=== PATIENT | female | born 1940 | race Caucasian/White ===

== ENCOUNTER 2017-04-04 12:58 | Inpatient (IN) | payer MEDICARE, OTHER ==
[~2017-04-04] VITALS: Ht 165.1 cm; Wt 73.5 kg
[2017-04-04] MEDS ORDERED: Sodium Chloride 500ML 500 ML IV ONE (13:30)
[2017-04-04] MEDS ORDERED: Metoprolol 5mg/5ml Inj IVP ONE ×2 (14:00→14:30)
[2017-04-04 14:06] LABS: BASOPHILS % (AUTO) 1.6 % (0.0-2.0); EOSINOPHILS % (AUTO) 1.9 % (0.0-3.0); HEMATOCRIT 41.7 % (37.0-47.0); HEMOGLOBIN 13.5 G/DL (12.0-16.0); LYMPHOCYTES % (AUTO) 30.8 % (20.0-45.0); MEAN CORPUSCULAR VOLUME 93 FL (80-99); MONOCYTES % (AUTO) 6.8 % (1.0-10.0); NEUTROPHILS % (AUTO) 58.9 % (45.0-75.0); PLATELET COUNT 282 K/UL (150-450); RED BLOOD COUNT 4.49 M/UL (4.20-5.40); WHITE BLOOD COUNT 7.4 K/UL (4.8-10.8)
[2017-04-04 14:20] LABS: ANION GAP 12 mmol/L (5-15); BLOOD UREA NITROGEN 17 mg/dL (7-18); CALCIUM 9.3 MG/DL (8.5-10.1); CARBON DIOXIDE 25 MMOL/L (21-32); CHLORIDE 106 MMOL/L (98-107); CREATININE 1.1 MG/DL (0.55-1.30); POTASSIUM 3.5 MMOL/L (3.5-5.1); SODIUM 143 MMOL/L (136-145)
[2017-04-04 14:27] LABS: INR 1.1 (0.9-1.1)
[2017-04-04 14:30] VITALS: BP 107/86
--- NOTE | 2017-04-04 14:31 | Diagnostic Imaging Report ---
Indication: Chest pain Comparison: None A single view chest radiograph was obtained. Findings: Bilateral pleural effusion suspected. There is pulmonary vascular congestion and interstitial edema with cardiomegaly. Bones are osteopenic. IMPRESSION: Interstitial edema/congestive heart failure. Bilateral pleural effusions
[2017-04-04 14:34] LABS: ALANINE AMINOTRANSFERASE 16 U/L (12-78); ALBUMIN 3.8 G/DL (3.4-5.0); ALBUMIN/GLOBULIN RATIO 1.1 (1.0-2.7); ALKALINE PHOSPHATASE 101 U/L (46-116); ASPARTATE AMINO TRANSFERASE 19 U/L (15-37); CKMB 2.8 NG/ML (0.0-3.6); CREATINE KINASE 97 U/L (26-308)
[2017-04-04 15:15] LABS: APPEARANCE,URINE CLEAR; BILIRUBIN, URINE NEGATIVE (NEGATIVE); COLOR,URINE PALE YELLOW; GLUCOSE, URINE (UA) NEGATIVE (NEGATIVE); KETONES,URINE NEGATIVE (NEGATIVE); LEUKOCYTE ESTERASE ,URINE 2+ (NEGATIVE); NITRITE,URINE NEGATIVE (NEGATIVE); PH,URINE 5 (4.5-8.0); PROTEIN,URINE NEGATIVE (NEGATIVE); UROBILINOGEN,URINE NORMAL MG/DL (0.0-1.0)
[2017-04-04] MEDS ORDERED: cefTRIAXone 1 GM in NS 55 ML IV SCH (15:15)
[2017-04-04] MEDS ORDERED: Adenosine 6mg/2ml Inj IVP ONE ×2 (15:15→16:00)
[2017-04-04] MEDS ORDERED: Azithromycin 500 MG in NS 275 ML IV SCH (15:15)
[2017-04-04 15:30] VITALS: BP 100/67
[2017-04-04] MEDS ORDERED: Azithromycin 500mg Inj IV ONE (16:12)
[2017-04-04] MEDS ORDERED: NS 275 ML ONE (16:12)
--- NOTE | 2017-04-04 16:14 | Emergency Room Report ---
History of Present Illness General Chief Complaint: Chest Pain Source: Patient Present Illness HPI 76-year-old female presents ED complaining of palpitations. Started 5 days ago. Denies any prior history. Was seen at PMD office and was referred here for evaluation. Denies chest pain or shortness of breath. Denies fevers or chills. Denies cough. No other aggravating relieving factors. Denies any other associated symptoms Allergies: Coded Allergies: No Known Allergies (Unverified , 04/04/17) Patient History Past Medical History: HTN Past Surgical History: none Pertinent Family History: none Social History: Denies: smoking, alcohol use, drug use Now: No Immunizations: UTD Reviewed Nursing Documentation: PMH: Agreed, PSxH: Agreed Nursing Documentation-PMH Hx Hypertension: Yes Review of Systems All Other Systems: negative except mentioned in HPI Physical Exam Vital Signs Date Time Temp Pulse Resp B/P (MAP) Pulse Ox O2 Delivery O2 Flow Rate FiO2 04/04/17 12:53 97.3 144 18 118/78 99 Room Air Sp02 EP Interpretation: reviewed, normal General Appearance: no apparent distress, alert, GCS 15, non-toxic Head: normocephalic, atraumatic Eyes: bilateral eye normal inspection, bilateral eye PERRL ENT: hearing grossly normal, normal pharynx, no angioedema, normal voice Neck: full range of motion, supple/symm/no masses Respiratory: chest non-tender, lungs clear, normal breath sounds, speaking full sentences Cardiovascular #1: no edema, tachycardia Cardiovascular #2: 2+ carotid (R), 2+ carotid (L), 2+ radial (R), 2+ radial (L) , 2+ dorsalis pedis (R), 2+ dorsalis pedis (L) Gastrointestinal: normal bowel sounds, non tender, soft, non-distended, no guarding, no rebound Rectal: deferred Genitourinary: normal inspection, no CVA tenderness Musculoskeletal: back normal, gait/station normal, normal range of motion, non- tender Neurologic: alert, oriented x3, responsive, motor strength/tone normal, sensory intact, speech normal Psychiatric: judgement/insight normal, memory normal, mood/affect normal, no suicidal/homicidal ideation Reflexes: 3+ bicep (R), 3+ bicep (L), 3+ tricep (R), 3+ tricep (L), 3+ knee (R) , 3+ knee (L) Skin: normal color, no rash, warm/dry, well hydrated Lymphatic: no adenopathy Medical Decision Making Diagnostic Impression: Primary Impression: Atrial flutter Qualified Codes: I48.92 - Unspecified atrial flutter Additional Impression: Palpitations ER Course Hospital Course 76-year-old female presents ED with palpitations Differential diagnoses include: TX/unstable angina, contusion, muscle strain, PTX, rib fracture, pneumonia, Clinical course Patient placed on stretcher. on registered nurse cardiac telemetry which shows A.flutter. After initial history and physical I ordered labs, EKG, chest x-ray, IVFs labs reviewed- no leukocytosis, hemoglobin/hematocrit ok, electrolytes okay, troponins negative EKG - aflutter, no acute ischemic changes interpreted by me Chest x-ray- CHF vs PNA given lopressor x 2. given adenosine, IVFs. improvement in tachycardia noted given abx. Case discussed with Dr. Chavez and he agreed to accept the patient to his service for further care and support I. I feel this is a highly complex case requiring extensive working including EKG/Rhythm strip, Xray/CT/US, Blood/urine lab work, repeat exams while in ED, and administration of strong opiates/narcotics for pain control, admission to hospital or close patient follow up. Diagnosis - aflutter, palpitations admitted to telemetry in serious condition Labs Test 04/04/17 13:45 04/04/17 14:48 04/04/17 15:15 White Blood Count 7.4 K/UL (4.8-10.8) Red Blood Count 4.49 M/UL (4.20-5.40) Hemoglobin 13.5 G/DL (12.0-16.0) Hematocrit 41.7 % (37.0-47.0) Mean Corpuscular Volume 93 FL (80-99) Mean Corpuscular Hemoglobin 30.1 PG (27.0-31.0) Mean Corpuscular Hemoglobin Concent 32.5 G/DL (32.0-36.0) Red Cell Distribution Width 12.0 % (11.6-14.8) Platelet Count 282 K/UL (150-450) Mean Platelet Volume 7.4 FL (6.5-10.1) Neutrophils (%) (Auto) 58.9 % (45.0-75.0) Lymphocytes (%) (Auto) 30.8 % (20.0-45.0) Monocytes (%) (Auto) 6.8 % (1.0-10.0) Eosinophils (%) (Auto) 1.9 % (0.0-3.0) Basophils (%) (Auto) 1.6 % (0.0-2.0) Prothrombin Time 12.0 SEC (9.30-11.50) Prothromb Time International Ratio 1.1 (0.9-1.1) Activated Partial Thromboplast Time 25 SEC (23-33) Sodium Level 143 MMOL/L (136-145) Potassium Level 3.5 MMOL/L (3.5-5.1) Chloride Level 106 MMOL/L (98-107) Carbon Dioxide Level 25 MMOL/L (21-32) Anion Gap 12 mmol/L (5-15) Blood Urea Nitrogen 17 mg/dL (7-18) Creatinine 1.1 MG/DL (0.55-1.30) Estimat Glomerular Filtration Rate mL/min (>60) Glucose Level 110 MG/DL (74-106) Calcium Level 9.3 MG/DL (8.5-10.1) Total Bilirubin 1.0 MG/DL (0.2-1.0) Aspartate Amino Transf (AST/SGOT) 19 U/L (15-37) Alanine Aminotransferase (ALT/SGPT) 16 U/L (12-78) Alkaline Phosphatase 101 U/L (46-116) Total Creatine Kinase 97 U/L (26-308) Creatine Kinase MB 2.8 NG/ML (0.0-3.6) Creatine Kinase MB Relative Index 2.8 Troponin I 0.000 ng/mL (0.000-0.056) Pro-B-Type Natriuretic Peptide 1494 pg/mL (0-125) Total Protein 7.3 G/DL (6.4-8.2) Albumin 3.8 G/DL (3.4-5.0) Globulin 3.5 g/dL Albumin/Globulin Ratio 1.1 (1.0-2.7) Urine Color Pale yellow Urine Appearance Clear Urine pH 5 (4.5-8.0) Urine Specific [place] 1.015 (1.005-1.035) Urine Protein Negative (NEGATIVE) Urine Glucose (UA) Negative (NEGATIVE) Urine Ketones Negative (NEGATIVE) Urine Occult Blood Negative (NEGATIVE) Urine Nitrite Negative (NEGATIVE) Urine Bilirubin Negative (NEGATIVE) Urine Urobilinogen Normal MG/DL (0.0-1.0) Urine Leukocyte Esterase 2+ (NEGATIVE) Urine RBC 0-2 /HPF (0 - 2) Urine WBC 2-4 /HPF (0 - 2) Urine Squamous Epithelial Cells Few /LPF (NONE/OCC) Urine Bacteria Few /HPF (NONE) Lactic Acid Level 1.60 mmol/L (0.66-2.22) EKG Diagnostic Results Rate: tachycardiac Rhythm: other - atria flutter ST Segments: other - twave inversions in lateral leads ASA given to the pt in ED: No Rhythm Strip Diag. Results EP Interpretation: yes Rhythm: NSR, no PVC's, no ectopy Chest X-Ray Diagnostic Results Chest X-Ray Diagnostic Results : Chest X-Ray Ordered: Yes # of Views/Limited/Complete: 1 View Indication: Chest Pain EP Interpretation: Yes Interpretation: no pneumothorax, other - bilateral pleural effusion. ? CHF Impression: Other - CHF vs PNA Electronically Signed by: Electronically signed by Vikas Mcclelland MD Last Vital Signs Date Time Temp Pulse Resp B/P (MAP) Pulse Ox O2 Delivery O2 Flow Rate FiO2 04/04/17 15:26 133 04/04/17 14:35 107/86 04/04/17 14:10 16 04/04/17 12:53 97.3 99 Room Air Status: improved Disposition: ADMITTED INPATIENT Condition: Serious Referrals: NON PHYSICIAN (PCP) VIKAS MCCLELLAND M.D. Apr 04, 2017 16:14
[2017-04-04 16:30] VITALS: BP 123/52
[2017-04-04] MEDS ORDERED: dilTIAZem HCl 25mg/5ml Inj IVP ONE (16:30)
[2017-04-04] MEDS ORDERED: MAGNESIUM OXID400 M1 ORAL (16:43)
[2017-04-04] MEDS ORDERED: ASPIR 8181 MG ORAL (16:43)
[2017-04-04] MEDS ORDERED: SIMVASTATIN20 MG ORAL (16:43)
[2017-04-04] MEDS ORDERED: ZETIA10 MG ORAL (16:43)
[2017-04-04] MEDS ORDERED: COQ1050 MG PO (16:43)
[2017-04-04] MEDS ORDERED: ACIDOPHILUS1 EAC6 PO (16:43)
[2017-04-04] MEDS ORDERED: VITAMIN D310000 UNIT PO (16:43)
[2017-04-04] MEDS ORDERED: NEXIUM40 MG ORAL (16:43)
[2017-04-04] MEDS ORDERED: Albuterol/Ipratropium 3ml neb HHN PRN (16:45)
[2017-04-04] MEDS ORDERED: Morphine Sulfate 2mg/ml Inj IVP PRN (16:45)
[2017-04-04] MEDS ORDERED: Nitroglycerin Subl 0.4mg tab SL PRN (16:45)
[2017-04-04] MEDS ORDERED: Miralax 17gm pkt ORAL PRN (16:45)
[2017-04-04] MEDS ORDERED: Enalaprilat 2.5mg/2ml Inj IV PRN (16:45)
[2017-04-04] MEDS ORDERED: Digoxin 0.5mg/2ml Inj IVP ONE (16:55)
[2017-04-04] MEDS ORDERED: Morphine Sulfate 4mg/ml Inj IVP ONE (17:15)
[2017-04-04] MEDS ORDERED: Midazolam 2mg/2ml Inj ONE (17:26)
[2017-04-04 17:30] VITALS: BP 71/19
[2017-04-04] MEDS ORDERED: Midazolam 2mg/2ml Inj IVP ONE (17:30)
[2017-04-04 18:30] VITALS: BP 89/55
[2017-04-04 19:30] VITALS: BP 99/66
--- NOTE | 2017-04-04 19:52 | History and Physical ---
History of Present Illness General Date patient seen: Apr 04, 2017 Reason for Hospitalization: Chest Pain Present Illness HPI 76-year-old female presented to ED complaining of palpitations for 5 days ago. Denies any prior history. Was seen at PMD office and was referred here for evaluation. . Denies fevers or chills. Denies cough. No other aggravating relieving factors. She was found to be in rapid afib and got shocked with 50J and converted to sinus. She was started on BIPAP b/o dyspnea and transferred to [facility] for further management. Allergies: Coded Allergies: No Known Allergies (Unverified , 04/04/17) Medication History Scheduled Aspirin* (Aspir 81*), 81 MG ORAL DAILY, (Reported) Cholecalciferol (Vitamin D3) (Vitamin D3), 5,000 UNIT PO DAILY, (Reported) Esomeprazole Magnesium (Nexium), 40 MG ORAL DAILY, (Reported) Ezetimibe (Zetia*), Unknown Dose ORAL BEDTIME, (Reported) Magnesium Oxide (Magnesium Oxide), 400 MG ORAL DAILY, (Reported) Simvastatin (Zocor), 20 MG ORAL DAILY, (Reported) Miscellaneous Medications Lactobacillus Acidophilus (Acidophilus), 1 EACH PO, (Reported) Ubidecarenone (Coq10), Unknown Dose PO, (Reported) Patient History Healthcare decision maker Resuscitation status Advanced Directive on File Past Medical/Surgical History Past Medical/Surgical History: (1) CAD (coronary artery disease) Review of Systems Respiratory: Reports: shortness of breath Cardiovascular: Reports: palpitations All Other Systems: negative except mentioned in HPI Physical Exam General Appearance: WD/WN Lines, tubes and drains: peripheral HEENT: normocephalic, atraumatic Neck: non-tender, supple Respiratory/Chest: chest wall non-tender, lungs clear Cardiovascular/Chest: normal peripheral pulses, normal rate Abdomen: normal bowel sounds, non tender Genitourinary/Rectal: normal genital exam Extremities: normal range of motion 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 Last 24 Hour Vital Signs Date Time Temp Pulse Resp B/P (MAP) Pulse Ox O2 Delivery O2 Flow Rate FiO2 04/04/17 19:38 96.7 81 28 99/66 94 Nasal Cannula 4.0 04/04/17 19:30 96.7 81 28 99/66 94 Nasal Cannula 4.0 04/04/17 18:30 96.7 69 21 89/55 99 Non-Rebreather 10.0 04/04/17 17:30 128 36 71/19 95 Non-Rebreather 10.0 04/04/17 16:52 132 114/90 04/04/17 16:30 133 36 123/52 98 Nasal Cannula 2.0 04/04/17 15:30 133 30 100/67 98 Nasal Cannula 2.0 04/04/17 15:26 133 04/04/17 14:35 134 107/86 04/04/17 14:30 135 23 107/86 96 Nasal Cannula 2.0 04/04/17 14:10 72 16 04/04/17 14:04 140 126/80 04/04/17 12:53 97.3 144 18 118/78 99 Room Air Laboratory Tests Test 04/04/17 13:45 04/04/17 14:48 04/04/17 15:15 04/04/17 18:07 White Blood Count 7.4 K/UL (4.8-10.8) Red Blood Count 4.49 M/UL (4.20-5.40) Hemoglobin 13.5 G/DL (12.0-16.0) Hematocrit 41.7 % (37.0-47.0) Mean Corpuscular Volume 93 FL (80-99) Mean Corpuscular Hemoglobin 30.1 PG (27.0-31.0) Mean Corpuscular Hemoglobin Concent 32.5 G/DL (32.0-36.0) Red Cell Distribution Width 12.0 % (11.6-14.8) Platelet Count 282 K/UL (150-450) Mean Platelet Volume 7.4 FL (6.5-10.1) Neutrophils (%) (Auto) 58.9 % (45.0-75.0) Lymphocytes (%) (Auto) 30.8 % (20.0-45.0) Monocytes (%) (Auto) 6.8 % (1.0-10.0) Eosinophils (%) (Auto) 1.9 % (0.0-3.0) Basophils (%) (Auto) 1.6 % (0.0-2.0) Prothrombin Time 12.0 SEC (9.30-11.50) H Prothromb Time International Ratio 1.1 (0.9-1.1) Activated Partial Thromboplast Time 25 SEC (23-33) Sodium Level 143 MMOL/L (136-145) Potassium Level 3.5 MMOL/L (3.5-5.1) Chloride Level 106 MMOL/L (98-107) Carbon Dioxide Level 25 MMOL/L (21-32) Anion Gap 12 mmol/L (5-15) Blood Urea Nitrogen 17 mg/dL (7-18) Creatinine 1.1 MG/DL (0.55-1.30) Estimat Glomerular Filtration Rate mL/min (>60) Glucose Level 110 MG/DL (74-106) H Calcium Level 9.3 MG/DL (8.5-10.1) Total Bilirubin 1.0 MG/DL (0.2-1.0) Aspartate Amino Transf (AST/SGOT) 19 U/L (15-37) Alanine Aminotransferase (ALT/SGPT) 16 U/L (12-78) Alkaline Phosphatase 101 U/L (46-116) Total Creatine Kinase 97 U/L (26-308) Creatine Kinase MB 2.8 NG/ML (0.0-3.6) Creatine Kinase MB Relative Index 2.8 Troponin I 0.000 ng/mL (0.000-0.056) 0.000 ng/mL (0.000-0.056) Pro-B-Type Natriuretic Peptide 1494 pg/mL (0-125) H Total Protein 7.3 G/DL (6.4-8.2) Albumin 3.8 G/DL (3.4-5.0) Globulin 3.5 g/dL Albumin/Globulin Ratio 1.1 (1.0-2.7) Urine Color Pale yellow Urine Appearance Clear Urine pH 5 (4.5-8.0) Urine Specific [place] 1.015 (1.005-1.035) Urine Protein Negative (NEGATIVE) Urine Glucose (UA) Negative (NEGATIVE) Urine Ketones Negative (NEGATIVE) Urine Occult Blood Negative (NEGATIVE) Urine Nitrite Negative (NEGATIVE) Urine Bilirubin Negative (NEGATIVE) Urine Urobilinogen Normal MG/DL (0.0-1.0) Urine Leukocyte Esterase 2+ (NEGATIVE) H Urine RBC 0-2 /HPF (0 - 2) Urine WBC 2-4 /HPF (0 - 2) Urine Squamous Epithelial Cells Few /LPF (NONE/OCC) Urine Bacteria Few /HPF (NONE) Lactic Acid Level 1.60 mmol/L (0.66-2.22) Height (Feet): 5 Height (Inches): 5.00 Weight (Pounds): 130 Medications Current Medications Medications (Trade) Dose Ordered Sig/Tavo Route PRN Reason Start Time Stop Time Status Last Admin Dose Admin Acetaminophen (Tylenol) 650 mg Q4H PRN ORAL FEVER 04/04/17 16:45 05/04/17 16:44 Albuterol/ Ipratropium (Albuterol/ Ipratropium) 3 ml Q4H PRN HHN Shortness of Breath 04/04/17 16:45 04/09/17 16:44 Digoxin (Lanoxin) 0.25 mg DAILY IVP 04/05/17 09:00 05/05/17 08:59 Diltiazem HCl (Cardizem) 10 mg Q1H PRN IV HR > 120 04/04/17 16:45 05/04/17 16:44 Enalaprilat (Vasotec) 2.5 mg Q6H PRN IV sbp more than 160 04/04/17 16:45 05/04/17 16:44 Metoprolol Tartrate (Lopressor) 5 mg Q1H PRN IVP HR > 140 04/04/17 16:45 05/04/17 16:44 Morphine Sulfate (Morphine Sulfate) 2 mg Q4H PRN IVP severe Pain (Pain Scale 7-10) 04/04/17 16:45 04/11/17 16:44 Nitroglycerin (Ntg) 0.4 mg Every 5 Minutes PRN SL Prn Chest Pain 04/04/17 16:45 05/04/17 16:44 Ondansetron HCl (Zofran) 4 mg Q6H PRN IVP Nausea & Vomiting 04/04/17 16:45 05/04/17 16:44 Pantoprazole (Protonix) 40 mg DAILY ORAL 04/05/17 09:00 05/05/17 08:59 Polyethylene Glycol (Miralax) 17 gm DAILYPRN PRN ORAL Constipation 04/04/17 16:45 05/04/17 16:44 Temazepam (Restoril) 15 mg HSPRN PRN ORAL Insomnia 04/04/17 16:45 04/11/17 16:44 Assessment/Plan Problem List: (1) Atrial flutter ICD Codes: I48.92 - Unspecified atrial flutter SNOMED: 7893045 Qualifiers: Qualified Codes: I48.92 - Unspecified atrial flutter (2) Palpitations ICD Codes: R00.2 - Palpitations SNOMED: 06535729 (3) CAD (coronary artery disease) ICD Codes: I25.10 - Atherosclerotic heart disease of [place] coronary artery without angina pectoris SNOMED: 31794106 Assessment/Plan cardizem drip digoxin echo titrate bipa respiratory treatment dvt prophylaxis ELI GO Apr 04, 2017 19:52
--- NOTE | 2017-04-04 20:18 | Cardiology Progress Note ---
Assessment/Plan Assessment/Plan [id number] fiale med rate cotroal s/p cardioversion 50 j chf mr hyperlipdimia may need to maintain on antyiarrytmic therapy as heart rate difficult to control diuretic slowly enzyme echo in am venoud dupelx tfts Objective Last 24 Hour Vital Signs Date Time Temp Pulse Resp B/P (MAP) Pulse Ox O2 Delivery O2 Flow Rate FiO2 04/04/17 19:38 96.7 81 28 99/66 94 Nasal Cannula 4.0 04/04/17 19:30 96.7 81 28 99/66 94 Nasal Cannula 4.0 04/04/17 18:30 96.7 69 21 89/55 99 Non-Rebreather 10.0 04/04/17 17:30 128 36 71/19 95 Non-Rebreather 10.0 04/04/17 16:52 132 114/90 04/04/17 16:30 133 36 123/52 98 Nasal Cannula 2.0 04/04/17 15:30 133 30 100/67 98 Nasal Cannula 2.0 04/04/17 15:26 133 04/04/17 14:35 134 107/86 04/04/17 14:30 135 23 107/86 96 Nasal Cannula 2.0 04/04/17 14:10 72 16 04/04/17 14:04 140 126/80 04/04/17 12:53 97.3 144 18 118/78 99 Room Air Laboratory Tests Test 04/04/17 13:45 04/04/17 14:48 04/04/17 15:15 04/04/17 18:07 White Blood Count 7.4 K/UL (4.8-10.8) Red Blood Count 4.49 M/UL (4.20-5.40) Hemoglobin 13.5 G/DL (12.0-16.0) Hematocrit 41.7 % (37.0-47.0) Mean Corpuscular Volume 93 FL (80-99) Mean Corpuscular Hemoglobin 30.1 PG (27.0-31.0) Mean Corpuscular Hemoglobin Concent 32.5 G/DL (32.0-36.0) Red Cell Distribution Width 12.0 % (11.6-14.8) Platelet Count 282 K/UL (150-450) Mean Platelet Volume 7.4 FL (6.5-10.1) Neutrophils (%) (Auto) 58.9 % (45.0-75.0) Lymphocytes (%) (Auto) 30.8 % (20.0-45.0) Monocytes (%) (Auto) 6.8 % (1.0-10.0) Eosinophils (%) (Auto) 1.9 % (0.0-3.0) Basophils (%) (Auto) 1.6 % (0.0-2.0) Prothrombin Time 12.0 SEC (9.30-11.50) H Prothromb Time International Ratio 1.1 (0.9-1.1) Activated Partial Thromboplast Time 25 SEC (23-33) Sodium Level 143 MMOL/L (136-145) Potassium Level 3.5 MMOL/L (3.5-5.1) Chloride Level 106 MMOL/L (98-107) Carbon Dioxide Level 25 MMOL/L (21-32) Anion Gap 12 mmol/L (5-15) Blood Urea Nitrogen 17 mg/dL (7-18) Creatinine 1.1 MG/DL (0.55-1.30) Estimat Glomerular Filtration Rate mL/min (>60) Glucose Level 110 MG/DL (74-106) H Calcium Level 9.3 MG/DL (8.5-10.1) Total Bilirubin 1.0 MG/DL (0.2-1.0) Aspartate Amino Transf (AST/SGOT) 19 U/L (15-37) Alanine Aminotransferase (ALT/SGPT) 16 U/L (12-78) Alkaline Phosphatase 101 U/L (46-116) Total Creatine Kinase 97 U/L (26-308) Creatine Kinase MB 2.8 NG/ML (0.0-3.6) Creatine Kinase MB Relative Index 2.8 Troponin I 0.000 ng/mL (0.000-0.056) 0.000 ng/mL (0.000-0.056) Pro-B-Type Natriuretic Peptide 1494 pg/mL (0-125) H Total Protein 7.3 G/DL (6.4-8.2) Albumin 3.8 G/DL (3.4-5.0) Globulin 3.5 g/dL Albumin/Globulin Ratio 1.1 (1.0-2.7) Urine Color Pale yellow Urine Appearance Clear Urine pH 5 (4.5-8.0) Urine Specific [place] 1.015 (1.005-1.035) Urine Protein Negative (NEGATIVE) Urine Glucose (UA) Negative (NEGATIVE) Urine Ketones Negative (NEGATIVE) Urine Occult Blood Negative (NEGATIVE) Urine Nitrite Negative (NEGATIVE) Urine Bilirubin Negative (NEGATIVE) Urine Urobilinogen Normal MG/DL (0.0-1.0) Urine Leukocyte Esterase 2+ (NEGATIVE) H Urine RBC 0-2 /HPF (0 - 2) Urine WBC 2-4 /HPF (0 - 2) Urine Squamous Epithelial Cells Few /LPF (NONE/OCC) Urine Bacteria Few /HPF (NONE) Lactic Acid Level 1.60 mmol/L (0.66-2.22) YI GIBSON Apr 04, 2017 20:18
--- NOTE | 2017-04-04 21:32 | Emergency Room Report ---
History of Present Illness General Chief Complaint: Chest Pain Source: Patient Present Illness Allergies: Coded Allergies: No Known Allergies (Unverified , 04/04/17) Patient History Now: No Nursing Documentation-PMH Hx Hypertension: Yes Physical Exam Vital Signs Date Time Temp Pulse Resp B/P (MAP) Pulse Ox O2 Delivery O2 Flow Rate FiO2 04/04/17 12:53 97.3 144 18 118/78 99 Room Air 04/04/17 14:30 2.0 Procedures Critical Care Time Critical Care Time i. I feel this is a highly complex case requiring extensive working including EKG/Rhythm strip, Xray/CT/US, Blood/urine lab work, repeat exams while in ED, and administration of strong opiates/narcotics for pain control, admission to hospital or close patient follow up. Total time: 30 min bedside evaluation and treatment excludes procedures (EKG). Reason for critical care: refractory atrial flutter, diaphroetic, hypotension Possible complications: hypotension, hypertension, UT, shock, arrhythmias, metabolic acidosis, end organ damage, respiratory failure. Interventions: Labs, IV fluids, EKG, chest x-ray. Lopressor x2. Cardizem. Adenosine. versed with cardioversion Course: Patient presenting with palpitations x5 days. EKG shows a flutter. New -onset. Given Lopressor x2 without improvement. Given IV fluids. Given Cardizem without improvement. Adenosine had no effect. Patient becoming diaphoretic and hypotensive. Patient given Versed and cardioverted with 50 J. Responded to cardioversion. Blood pressure improving with IV fluids Consultations: nursing staff, EMS, family Performed by: Dr Mcclelland Tolerated well condition = serious j. because of unstable vital signs this patient had a condition that could potentially threaten life or limb. I feel this is a critical patient who required my full attention while patient was considered critical. Total Critical Care Time excluding procedures was greater than 35 minutes Cardioversion Cardioversion: Consent: Emergent Indication: AFIB Type: Synchonis Response: Sinus Attempts: One Patient Tolerated: Well Medical Decision Making Diagnostic Impression: Primary Impression: Atrial flutter Qualified Codes: I48.92 - Unspecified atrial flutter Additional Impression: Palpitations ER Course Patient became again tachycardic and hypotensive. Diaphoretic. Not responding to medications. Patient given Versed and cardioverted with 50 J. Responded to cardioversion. initially lethargic but became more awake. Hypotensive but responded to IV fluids. Discussed case with cardiology Dr. Cardenas Last Vital Signs Date Time Temp Pulse Resp B/P (MAP) Pulse Ox O2 Delivery O2 Flow Rate FiO2 04/04/17 19:38 96.7 81 28 99/66 94 Nasal Cannula 4.0 Status: improved Disposition: ADMITTED INPATIENT Condition: Serious Referrals: NON PHYSICIAN (PCP) NIURKA MCCLELLAND M.D. Apr 04, 2017 21:32
[2017-04-04] MEDS: Amiodarone 200mg tab ORAL SCH (21:46)
[2017-04-05] VITALS: BP 131/75
[2017-04-05 04:00] VITALS: BP 126/80
--- NOTE | 2017-04-05 05:32 | Consultation ---
DATE OF CONSULTATION: 04/04/2017 NOTE: POOR AUDIO CARDIOLOGY CONSULTATION CONSULTING PHYSICIAN: Param Cardenas M.D. REFERRING PHYSICIAN: Gabby Chavez M.D. REASON FOR REFERRAL: Atrial flutter. HISTORY OF PRESENT ILLNESS: This is an elderly female, who presented to the hospital because of shortness of breath and palpitations. Palpitations have been ongoing for the past five days, worse in the evening and when she is sleeping, but she does had persistent regular palpitations apparently. She really had pain, pressure, tightness, or heaviness in her chest at all. No dizziness or lightheadedness. No PND. No orthopnea. She finally presented to her doctor's office, . Because of her heart rate, she was referred to the emergency room. She was admitted to the hospital through the emergency room with tachycardia with heart rates in the 140s. She received therapy with beta-blockers intravenously and subsequently because of poor response, I was notified after an attempt at the patient getting some diltiazem without any effect. The decision was made that probably it better suited for the patient to be cardioverted and the patient did receive some Versed and was cardioverted with 50 joules by the emergency room physician and is now converted to sinus rhythm effect. She says when she came into the hospital, she was feeling better throughout the day and subsequently she worsened in the emergency room. After the cardioversion, she is feeling , but she still feels short of breath. There is no chest pain. There is no PND or orthopnea. PAST MEDICAL HISTORY: Positive for high cholesterol. She is taking medication for it. No history of heart attack. No cancer. No stroke. No hepatitis or tuberculosis. No asthma or emphysema and she has been told she had small ulcers. No kidney problems, liver problems, thyroid problems, anemia, arthritis, or any other medical problems. She has been seen by color worker for some mitral valve problems previously. Every six months she apparently sees . ALLERGIES: She is not allergic to any medications. SOCIAL HISTORY: She does not smoke. Does not drink. Does not use drugs. She worked as an electrical cad technician. REVIEW OF SYSTEMS: GASTROINTESTINAL: She denies any nausea, vomiting, diarrhea, or constipation. GENITOURINARY: Denies. PULMONARY: Positive for coughing for the past three or four weeks. No significant sputum production at this time, although apparently she did before. CONSTITUTIONAL: She had previously some illness, three or four weeks ago she had some fevers at that time, but not now. NEUROLOGIC: Negative. CARDIAC: As mentioned above. PHYSICAL EXAMINATION: GENERAL: Shows to be elderly female, who appears somewhat tachypneic. NECK: Supple. No jugular venous distention. LUNGS: There are some crackles on the bases. CARDIAC: Regular rhythm. No heaves, thrills, gallops, or rubs are noted. ABDOMEN: Abdomen is soft. Obese. Positive bowel sounds. EXTREMITIES: There is no edema. No clubbing or cyanosis. NEUROLOGICAL: She is communicative and responsive. Moves all four extremities. LABORATORY AND DIAGNOSTIC DATA: White count of 7.4, hemoglobin 13.5, and platelet count of 282. Sodium was 143, potassium 3.5, chloride 106, bicarbonate 25, BUN 17, creatinine 1.1, and a glucose of 110. Two sets of cardiac enzymes are completely negative so far between initial presentation of 1345 hours and 1807 hours. ProBNP is 1494 and an albumin of 3.8. Coagulations, INR is 1.1 and PTT 25. Urinalysis is fairly unremarkable. She did have some x-rays of the chest in the emergency room and showed interstitial edema, congestive heart failure, and bilateral pleural effusions changes noted. Electrocardiogram initially showed atrial flutter with a heart rate in the with leftward axis. No significant ST-T wave abnormalities being noted. ASSESSMENT AND PLAN: 1. Atrial flutter rate controlled with beta-blockers and Cardizem. 2. Congestive heart failure. 3. Mitral regurgitation per history. This patient was seen in cardiac consultation. The patient, as mentioned after discussion with the emergency room, had a successful cardioversion to sinus rhythm with 50 joules and she seems somewhat short of breath, although she feels, but she is getting better when compared to throughout the course of the day. She will receive intravenous diuretics here. Her blood pressure had been a bit on the low side earlier, but may be recovering. She will use oxygen and she will have serial enzymes, EKGs will be checked, and a venous duplex study will be ordered for tomorrow morning. Once her blood pressure recovers, the patient will receive intravenous diuretics. An echocardiogram will be ordered for evaluation of left ventricular systolic function and mitral regurgitation. She does not have any problem with hypertension previously. Therefore, I suspect blood pressures in the 99 to 120s may not be that far-fetched from normal for her. Cortisol level be checked in the morning. Param Cardenas M.D. DR: JESUS JOB#: [id number] CC:
[2017-04-05 05:33] LABS: BASOPHILS % (AUTO) 1.1 % (0.0-2.0); EOSINOPHILS % (AUTO) 0.1 % (0.0-3.0); HEMATOCRIT 35.6 % (37.0-47.0); HEMOGLOBIN 12.3 G/DL (12.0-16.0); LYMPHOCYTES % (AUTO) 18.1 % (20.0-45.0); MEAN CORPUSCULAR VOLUME 93 FL (80-99); MONOCYTES % (AUTO) 5.5 % (1.0-10.0); NEUTROPHILS % (AUTO) 75.2 % (45.0-75.0); PLATELET COUNT 253 K/UL (150-450); RED BLOOD COUNT 3.82 M/UL (4.20-5.40); RED CELL DISTRIBUTION WIDTH 12.1 % (11.6-14.8); WHITE BLOOD COUNT 8.8 K/UL (4.8-10.8)
[2017-04-05 06:00] LABS: INR 1.2 (0.9-1.1)
[2017-04-05 06:19] LABS: CHOLESTEROL 100 MG/DL (< 200); HDL CHOLESTEROL 55 MG/DL (40-60); TRIGLYCERIDES 37 MG/DL (30-150)
[2017-04-05 08:00] VITALS: BP 137/74
[2017-04-05] MEDS: Digoxin 0.5mg/2ml Inj IVP SCH (09:44)
[2017-04-05] MEDS: Amiodarone 200mg tab ORAL SCH ×2 (09:45→21:40)
--- NOTE | 2017-04-05 11:56 | Pulmonology Progress Note ---
Assessment/Plan Problems: (1) Acute respiratory failure (2) Atrial flutter (3) Palpitations (4) CAD (coronary artery disease) Assessment/Plan titrate bipa diuretics check cxr bnp in am titrate fio2 watch intake and output Subjective ROS Limited/Unobtainable: No Constitutional: Reports: no symptoms HEENT: Repors: no symptoms Respiratory: Reports: no symptoms Allergies: Coded Allergies: No Known Allergies (Unverified , 04/04/17) Objective Last 24 Hour Vital Signs Date Time Temp Pulse Resp B/P (MAP) Pulse Ox O2 Delivery O2 Flow Rate FiO2 04/05/17 11:16 107 35 100 Facial 50 04/05/17 09:44 101 04/05/17 08:50 101 26 100 Facial 50 04/05/17 08:00 97.9 106 22 137/74 100 Bi-pap 50 04/05/17 07:54 105 04/05/17 06:45 96 28 Bi-pap 50 04/05/17 06:43 98 27 100 Facial 50 04/05/17 05:19 96 20 99 Facial 50 04/05/17 04:00 97.7 94 24 126/80 97 Bi-pap 50 04/05/17 04:00 50 04/05/17 04:00 91 04/05/17 03:27 91 25 99 Facial 50 04/05/17 00:57 89 24 90 Facial 50 04/05/17 00:00 50 04/05/17 00:00 97.4 95 32 131/75 100 Bi-pap 50 04/05/17 00:00 82 04/04/17 22:38 92 27 97 Facial 50 04/04/17 21:44 89 26 94 Simple Mask 6.0 45 04/04/17 21:44 45 04/04/17 21:43 89 26 Simple Mask 6.0 45 04/04/17 19:38 96.7 81 28 99/66 94 Nasal Cannula 4.0 04/04/17 19:30 96.7 81 28 99/66 94 Nasal Cannula 4.0 04/04/17 18:30 96.7 69 21 89/55 99 Non-Rebreather 10.0 04/04/17 17:30 128 36 71/19 95 Non-Rebreather 10.0 04/04/17 16:52 132 114/90 1/11/18 16:30 133 36 123/52 98 Nasal Cannula 2.0 04/04/17 15:30 133 30 100/67 98 Nasal Cannula 2.0 04/04/17 15:26 133 04/04/17 14:35 134 107/86 04/04/17 14:30 135 23 107/86 96 Nasal Cannula 2.0 04/04/17 14:10 72 16 04/04/17 14:04 140 126/80 04/04/17 12:53 97.3 144 18 118/78 99 Room Air Intake and Output 04/04/17 04/05/17 19:00 07:00 Intake Total 0 ml Balance 0 ml Intake Oral 0 ml # Voids 3 Objective still on bipap General Appearance: WD/WN HEENT: normocephalic, atraumatic Respiratory/Chest: chest wall non-tender, lungs clear Cardiovascular: normal peripheral pulses, regular rhythm Abdomen: normal bowel sounds, soft, non tender Genitourinary: normal external genitalia Extremities: no clubbing Skin: no lesions Laboratory Tests 04/04/17 13:45: White Blood Count 7.4, Red Blood Count 4.49, Hemoglobin 13.5, Hematocrit 41.7, Mean Corpuscular Volume 93, Mean Corpuscular Hemoglobin 30.1, Mean Corpuscular Hemoglobin Concent 32.5, Red Cell Distribution Width 12.0, Platelet Count 282, Mean Platelet Volume 7.4, Neutrophils (%) (Auto) 58.9, Lymphocytes (%) (Auto) 30.8, Monocytes (%) (Auto) 6.8, Eosinophils (%) (Auto) 1.9, Basophils (%) (Auto ) 1.6, Prothrombin Time 12.0H, Prothromb Time International Ratio 1.1, Activated Partial Thromboplast Time 25, Sodium Level 143, Potassium Level 3.5, Chloride Level 106, Carbon Dioxide Level 25, Anion Gap 12, Blood Urea Nitrogen 17, Creatinine 1.1, Estimat Glomerular Filtration Rate , Glucose Level 110H, Calcium Level 9.3, Total Bilirubin 1.0, Aspartate Amino Transf (AST/SGOT) 19, Alanine Aminotransferase (ALT/SGPT) 16, Alkaline Phosphatase 101, Total Creatine Kinase 97, Creatine Kinase MB 2.8, Creatine Kinase MB Relative Index 2.8, Troponin I 0.000, Pro-B-Type Natriuretic Peptide 1494H, Total Protein 7.3, Albumin 3.8, Globulin 3.5, Albumin/Globulin Ratio 1.1 04/04/17 14:48: Urine Color Pale yellow, Urine Appearance Clear, Urine pH 5, Urine Specific Boyle 1.015, Urine Protein Negative, Urine Glucose (UA) Negative, Urine Ketones Negative, Urine Occult Blood Negative, Urine Nitrite Negative, Urine Bilirubin Negative, Urine Urobilinogen Normal, Urine Leukocyte Esterase 2+H, Urine RBC 0-2, Urine WBC 2-4, Urine Squamous Epithelial Cells Few, Urine Bacteria Few 04/04/17 15:15: Lactic Acid Level 1.60 04/04/17 18:07: Troponin I 0.000 04/05/17 03:00: White Blood Count 8.8, Red Blood Count 3.82L, Hemoglobin 12.3, Hematocrit 35.6L , Mean Corpuscular Volume 93, Mean Corpuscular Hemoglobin 32.2H, Mean Corpuscular Hemoglobin Concent 34.6, Red Cell Distribution Width 12.1, Platelet Count 253, Mean Platelet Volume 6.9, Neutrophils (%) (Auto) 75.2H, Lymphocytes ( %) (Auto) 18.1L, Monocytes (%) (Auto) 5.5, Eosinophils (%) (Auto) 0.1, Basophils (%) (Auto) 1.1, Prothrombin Time 12.6H, Prothromb Time International Ratio 1.2H, Activated Partial Thromboplast Time 26, Troponin I 0.000, C- Reactive Protein, Quantitative 0.6, Triglycerides Level 37, Cholesterol Level 100, LDL Cholesterol 42, HDL Cholesterol 55, Cholesterol/HDL Ratio 1.8L, Thyroid Stimulating Hormone (TSH) 0.431 Current Medications Medications (Trade) Dose Ordered Sig/Tavo Route PRN Reason Start Time Stop Time Status Last Admin Dose Admin Acetaminophen (Tylenol) 650 mg Q4H PRN ORAL FEVER 04/04/17 16:45 05/04/17 16:44 Albuterol/ Ipratropium (Albuterol/ Ipratropium) 3 ml Q4H PRN HHN Shortness of Breath 04/04/17 16:45 04/09/17 16:44 04/04/17 21:42 Amiodarone HCl (Cordarone) 200 mg EVERY 12 HOURS ORAL 04/04/17 21:00 05/04/17 20:59 04/05/17 09:45 Digoxin (Lanoxin) 0.25 mg DAILY IVP 04/05/17 09:00 05/05/17 08:59 04/05/17 09:44 Diltiazem HCl (Cardizem) 10 mg Q1H PRN IV HR > 120 04/04/17 16:45 05/04/17 16:44 Furosemide 100 mg/ Dextrose 110 ml @ 11 mls/hr Q10H IV 04/05/17 11:45 05/05/17 11:44 UNV Metoprolol Tartrate (Lopressor) 5 mg Q1H PRN IVP HR > 140 04/04/17 16:45 05/04/17 16:44 Nitroglycerin (Ntg) 0.4 mg Every 5 Minutes PRN SL Prn Chest Pain 04/04/17 16:45 05/04/17 16:44 Ondansetron HCl (Zofran) 4 mg Q6H PRN IVP Nausea & Vomiting 04/04/17 16:45 05/04/17 16:44 Pantoprazole (Protonix) 40 mg DAILY ORAL 04/05/17 09:00 05/05/17 08:59 04/05/17 09:45 Polyethylene Glycol (Miralax) 17 gm DAILYPRN PRN ORAL Constipation 04/04/17 16:45 05/04/17 16:44 Temazepam (Restoril) 15 mg HSPRN PRN ORAL Insomnia 04/04/17 16:45 04/11/17 16:44 ELI GO Apr 05, 2017 11:56
[2017-04-05 12:00] VITALS: BP 133/78
--- NOTE | 2017-04-05 12:57 | Cardiology Report ---
APPROVED REPORT EXAM: Two-dimensional and M-mode echocardiogram with Doppler and color Doppler. INDICATION LV FUNCTION M-Mode DIMENSIONS IVSd1.3 (0.7-1.1cm)Left Atrium (MM)4.1 (1.6-4.0cm) LVDd5.4 (3.5-5.6cm)Aortic Root2.6 (2.0-3.7cm) PWd1.3 (0.7-1.1cm)Aortic Cusp Exc.1.3 (1.5-2.0cm) IVSs1.1 cm LVDs3.5 (2.5-4.0cm) PWs1.4 cm Technically difficult study due to poor acoustical windows and patient breathing. Normal left ventricular chamber size, systolic function and wall motion. Left ventricular ejection fraction estimated to be 60-65 %. Mild left ventricular hypertrophy by 2-D. Pleural effusion. Mild Left atrial enlargement. Right cardiac chamber sizes are within normal limits. Focal aortic valve sclerosis with adequate cusp excursion. Heavy Thickened mitral valve leaflets with normal excursion. Heavy Mitral annulus and aortic root calcification. Pulmonic valve not well visualized. Normal tricuspid valve structure. IVC dilated at 2.6 cm without physiologic collapse suggestive of increased RA pressure. A color flow and spectral Doppler study was performed and revealed: No aortic regurgitation. moderate mitral regurgitation. Peak aortic valve gradient of 16 mm Hg and a mean of 6 mmHg. Aortic valve area 2.5 cm2 calculated by continuity equation. Mild aortic stenosis. Peak mitral valve gradient of 30 mm Hg and a mean of 14 mmHg. Moderate mitral stenosis. Moderate mitral regurgitation. Mitral inflow indicates restrictive pattern, implying severely elevated left atrial pressure (Grade III ). Mild tricuspid regurgitation. Tricuspid systolic velocities suggests peak right ventricular systolic pressure of 46 mmHg,consistent with moderate pulmonary hypertension. Trace Pulmonic regurgitation present.
--- NOTE | 2017-04-05 15:48 | Cardiology Progress Note ---
Assessment/Plan Assessment/Plan 1. Atrial flutter failed rate controlled with beta-blockers and Cardizem s/p cardioverison 2. Congestive heart failure. 3. Mitral stenosis likely sig 4. Mitral regurgitation 5. 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 has Mitral stenosis the gradient may be higher than recorded here she may need valvuloplasty eventually at [facility] for now diuresis nwo that bp has recovered post sedation for cardioversion yest is celeste laisx drip now i have her on amiod for now as her heart rate was difficult to control and required cardioversion amiod 200 mg bid for 2 wedeks then 200 mg dialy tele no further afib flutter noted is on bipap now Subjective Cardiovascular: Denies: chest pain Respiratory: Reports: shortness of breath Gastrointestinal/Abdominal: Denies: abdominal pain Genitourinary: Denies: burning Objective Last 24 Hour Vital Signs Date Time Temp Pulse Resp B/P (MAP) Pulse Ox O2 Delivery O2 Flow Rate FiO2 04/05/17 14:48 101 20 98 Facial 50 04/05/17 13:23 101 22 97 Facial 50 04/05/17 12:00 50 04/05/17 12:00 97.0 99 22 133/78 99 Bi-pap 50 04/05/17 11:47 104 04/05/17 11:16 107 35 100 Facial 50 04/05/17 09:44 101 04/05/17 08:50 101 26 100 Facial 50 04/05/17 08:00 50 04/05/17 08:00 97.9 106 22 137/74 100 Bi-pap 50 04/05/17 07:54 105 04/05/17 06:45 96 28 Bi-pap 50 04/05/17 06:43 98 27 100 Facial 50 04/05/17 05:19 96 20 99 Facial 50 04/05/17 04:00 97.7 94 24 126/80 97 Bi-pap 50 04/05/17 04:00 50 04/05/17 04:00 91 04/05/17 03:27 91 25 99 Facial 50 04/05/17 00:57 89 24 90 Facial 50 04/05/17 00:00 50 04/05/17 00:00 97.4 95 32 131/75 100 Bi-pap 50 04/05/17 00:00 82 04/04/17 22:38 92 27 97 Facial 50 04/04/17 21:44 89 26 94 Simple Mask 6.0 45 04/04/17 21:44 45 04/04/17 21:43 89 26 Simple Mask 6.0 45 04/04/17 19:38 96.7 81 28 99/66 94 Nasal Cannula 4.0 04/04/17 19:30 96.7 81 28 99/66 94 Nasal Cannula 4.0 04/04/17 18:30 96.7 69 21 89/55 99 Non-Rebreather 10.0 04/04/17 17:30 128 36 71/19 95 Non-Rebreather 10.0 04/04/17 16:52 132 114/90 04/04/17 16:30 133 36 123/52 98 Nasal Cannula 2.0 General Appearance: alert Neck: supple Cardiovascular: normal rate, regular rhythm Respiratory/Chest: decreased breath sounds Abdomen: normal bowel sounds, non tender, soft Extremities: no swelling Intake and Output 04/04/17 04/05/17 19:00 07:00 Intake Total 0 ml Balance 0 ml Intake Oral 0 ml # Voids 3 Laboratory Tests Test 04/04/17 18:07 04/05/17 03:00 Troponin I 0.000 ng/mL (0.000-0.056) 0.000 ng/mL (0.000-0.056) White Blood Count 8.8 K/UL (4.8-10.8) Red Blood Count 3.82 M/UL (4.20-5.40) L Hemoglobin 12.3 G/DL (12.0-16.0) Hematocrit 35.6 % (37.0-47.0) L Mean Corpuscular Volume 93 FL (80-99) Mean Corpuscular Hemoglobin 32.2 PG (27.0-31.0) H Mean Corpuscular Hemoglobin Concent 34.6 G/DL (32.0-36.0) Red Cell Distribution Width 12.1 % (11.6-14.8) Platelet Count 253 K/UL (150-450) Mean Platelet Volume 6.9 FL (6.5-10.1) Neutrophils (%) (Auto) 75.2 % (45.0-75.0) H Lymphocytes (%) (Auto) 18.1 % (20.0-45.0) L Monocytes (%) (Auto) 5.5 % (1.0-10.0) Eosinophils (%) (Auto) 0.1 % (0.0-3.0) Basophils (%) (Auto) 1.1 % (0.0-2.0) Prothrombin Time 12.6 SEC (9.30-11.50) H Prothromb Time International Ratio 1.2 (0.9-1.1) H Activated Partial Thromboplast Time 26 SEC (23-33) C-Reactive Protein, Quantitative 0.6 mg/dL (0.00-0.90) Triglycerides Level 37 MG/DL (30-150) Cholesterol Level 100 MG/DL (< 200) LDL Cholesterol 42 mg/dL (<100) HDL Cholesterol 55 MG/DL (40-60) Cholesterol/HDL Ratio 1.8 (3.3-4.4) L Thyroid Stimulating Hormone (TSH) 0.431 uiU/mL (0.358-3.740) YI GIBSON Apr 05, 2017 15:48
[2017-04-05 16:00] VITALS: BP 125/70
[2017-04-05 20:00] VITALS: BP 116/66
[2017-04-06] VITALS (7 sets, daily range): BP systolic 95–147; BP diastolic 53–92
[2017-04-06] MEDS: Metoprolol 5mg/5ml Inj IVP PRN ×2 (02:59→07:33)
[2017-04-06] MEDS: dilTIAZem HCl 25mg/5ml Inj IV PRN ×2 (04:40→06:14)
[2017-04-06 04:48] LABS: BASOPHILS % (AUTO) 1.2 % (0.0-2.0); EOSINOPHILS % (AUTO) 1.6 % (0.0-3.0); HEMATOCRIT 37.4 % (37.0-47.0); HEMOGLOBIN 12.8 G/DL (12.0-16.0); LYMPHOCYTES % (AUTO) 22.3 % (20.0-45.0); MEAN CORPUSCULAR VOLUME 93 FL (80-99); MONOCYTES % (AUTO) 8.8 % (1.0-10.0); PLATELET COUNT 223 K/UL (150-450); RED BLOOD COUNT 4.04 M/UL (4.20-5.40); RED CELL DISTRIBUTION WIDTH 11.9 % (11.6-14.8); WHITE BLOOD COUNT 7.9 K/UL (4.8-10.8)
[2017-04-06 05:09] LABS: ALANINE AMINOTRANSFERASE 91 U/L (12-78); ALBUMIN 3.7 G/DL (3.4-5.0); ALBUMIN/GLOBULIN RATIO 1.1 (1.0-2.7); ALKALINE PHOSPHATASE 109 U/L (46-116); ANION GAP 10 mmol/L (5-15); ASPARTATE AMINO TRANSFERASE 67 U/L (15-37); BILIRUBIN,TOTAL 1.4 MG/DL (0.2-1.0); BLOOD UREA NITROGEN 13 mg/dL (7-18); CALCIUM 9.1 MG/DL (8.5-10.1); CARBON DIOXIDE 28 MMOL/L (21-32); CHLORIDE 101 MMOL/L (98-107); SODIUM 139 MMOL/L (136-145)
[2017-04-06 05:14] LABS: BILIRUBIN,DIRECT 0.3 MG/DL (0.0-0.3)
--- NOTE | 2017-04-06 08:05 | Pulmonology Progress Note ---
Assessment/Plan Problems: (1) Acute respiratory failure (2) Atrial flutter (3) Palpitations (4) Pulmonary edema (5) CAD (coronary artery disease) Assessment/Plan titrate bipa, try to taper off diuretics, lasix drip check cxr bnp in am titrate fio2 watch intake and output , 1.9 liters negative so far kcl supplement symptomatic treatment of sinus tachycardia Subjective ROS Limited/Unobtainable: No Constitutional: Reports: no symptoms Respiratory: Reports: no symptoms Allergies: Coded Allergies: No Known Allergies (Unverified , 04/04/17) Objective Last 24 Hour Vital Signs Date Time Temp Pulse Resp B/P (MAP) Pulse Ox O2 Delivery O2 Flow Rate FiO2 04/06/17 07:33 140 112/61 04/06/17 07:10 97 19 Bi-pap 40 04/06/17 07:10 136 18 99 50 04/06/17 06:14 137 04/06/17 05:10 133 18 99 50 04/06/17 04:40 135 137/73 04/06/17 04:00 50 04/06/17 04:00 132 04/06/17 04:00 97.0 134 20 147/71 100 Bi-pap 50 04/06/17 02:59 147 114/70 04/06/17 02:33 130 27 99 50 04/06/17 01:25 92 22 98 50 04/06/17 00:00 40 04/06/17 00:00 98.0 88 24 103/53 98 Bi-pap 50 04/06/17 00:00 93 04/05/17 23:20 96 14 94 50 04/05/17 20:59 96 26 98 40 04/05/17 20:00 97.9 95 34 116/66 99 Bi-pap 50 04/05/17 20:00 50 04/05/17 19:33 102 04/05/17 19:17 96 19 Bi-pap 40 04/05/17 19:17 96 19 100 40 04/05/17 16:47 97 23 100 Facial 50 04/05/17 16:05 50 04/05/17 16:00 97.5 100 22 125/70 98 Bi-pap 50 04/05/17 16:00 95 04/05/17 14:48 101 20 98 Facial 50 04/05/17 13:23 101 22 97 Facial 50 04/05/17 12:00 50 04/05/17 12:00 97.0 99 22 133/78 99 Bi-pap 50 04/05/17 11:47 104 04/05/17 11:16 107 35 100 Facial 50 04/05/17 09:44 101 04/05/17 08:50 101 26 100 Facial 50 Intake and Output 04/05/17 04/06/17 19:00 07:00 Intake Total 450 ml 293.2 ml Output Total 700 ml 1200 ml Balance -250 ml -906.8 ml Intake Oral 400 ml 200 ml IV Total 50 ml 93.2 ml Output Urine Total 700 ml 1200 ml # Voids 3 6 Objective still on bipap HEENT: normocephalic, atraumatic, anicteric Respiratory/Chest: lungs clear Breasts: no masses Cardiovascular: normal peripheral pulses Abdomen: normal bowel sounds, soft, non tender, no scars Extremities: no clubbing Skin: no rash Microbiology Date/Time Source Procedure Growth Status 04/04/17 15:15 Blood Blood Culture - Preliminary NO GROWTH AFTER 24 HOURS Resulted 04/04/17 15:05 Blood Blood Culture - Preliminary NO GROWTH AFTER 24 HOURS Resulted Laboratory Tests 04/06/17 03:50: White Blood Count 7.9, Red Blood Count 4.04L, Hemoglobin 12.8, Hematocrit 37.4, Mean Corpuscular Volume 93, Mean Corpuscular Hemoglobin 31.6H, Mean Corpuscular Hemoglobin Concent 34.1, Red Cell Distribution Width 11.9, Platelet Count 223, Mean Platelet Volume 7.5, Neutrophils (%) (Auto) 66.0, Lymphocytes (%) (Auto) 22.3, Monocytes (%) (Auto) 8.8, Eosinophils (%) (Auto) 1.6, Basophils (%) (Auto ) 1.2, Sodium Level 139, Potassium Level 3.0L, Chloride Level 101, Carbon Dioxide Level 28, Anion Gap 10, Blood Urea Nitrogen 13, Creatinine 1.0, Estimat Glomerular Filtration Rate , Glucose Level 82, Calcium Level 9.1, Total Bilirubin 1.4H, Direct Bilirubin 0.3, Aspartate Amino Transf (AST/SGOT) 67H, Alanine Aminotransferase (ALT/SGPT) 91H, Alkaline Phosphatase 109, Troponin I 0.000, Pro-B-Type Natriuretic Peptide 1810H, Total Protein 7.1, Albumin 3.7, Globulin 3.4, Albumin/Globulin Ratio 1.1 Current Medications Medications (Trade) Dose Ordered Sig/Tavo Route PRN Reason Start Time Stop Time Status Last Admin Dose Admin Acetaminophen (Tylenol) 650 mg Q4H PRN ORAL FEVER 04/04/17 16:45 05/04/17 16:44 Albuterol/ Ipratropium (Albuterol/ Ipratropium) 3 ml Q4H PRN HHN Shortness of Breath 04/04/17 16:45 04/09/17 16:44 04/04/17 21:42 Amiodarone HCl (Cordarone) 200 mg EVERY 12 HOURS ORAL 04/04/17 21:00 05/04/17 20:59 04/05/17 21:40 Digoxin (Lanoxin) 0.25 mg DAILY IVP 04/05/17 09:00 05/05/17 08:59 04/05/17 09:44 Diltiazem HCl (Cardizem) 10 mg Q1H PRN IV HR > 120 04/04/17 16:45 05/04/17 16:44 04/06/17 06:14 Furosemide 100 mg/ Dextrose 100 ml @ 10 mls/hr Q10H IV 04/05/17 14:00 05/05/17 13:59 04/05/17 23:40 Metoprolol Tartrate (Lopressor) 5 mg Q1H PRN IVP HR > 140 04/04/17 16:45 05/04/17 16:44 04/06/17 07:33 Nitroglycerin (Ntg) 0.4 mg Every 5 Minutes PRN SL Prn Chest Pain 04/04/17 16:45 05/04/17 16:44 Ondansetron HCl (Zofran) 4 mg Q6H PRN IVP Nausea & Vomiting 04/04/17 16:45 05/04/17 16:44 Pantoprazole (Protonix) 40 mg DAILY ORAL 04/05/17 09:00 05/05/17 08:59 04/05/17 09:45 Polyethylene Glycol (Miralax) 17 gm DAILYPRN PRN ORAL Constipation 04/04/17 16:45 05/04/17 16:44 Temazepam (Restoril) 15 mg HSPRN PRN ORAL Insomnia 04/04/17 16:45 04/11/17 16:44 04/05/17 21:40 ELI GO Apr 06, 2017 08:05
[2017-04-06] MEDS: Amiodarone 200mg tab ORAL SCH (08:19)
[2017-04-06] MEDS: Digoxin 0.5mg/2ml Inj IVP SCH (08:20)
[2017-04-06] MEDS ORDERED: Potassium Chloride 50 MEQ in Sodium Chloride 500ML 550 ML IVPB ONE ×3 (09:00→16:45)
[2017-04-06] MEDS ORDERED: Amiodarone 900 MG in D5W 500ml 482 ML IV SCH (09:45)
--- NOTE | 2017-04-06 11:50 | Diagnostic Imaging Report ---
Indication: Dyspnea Technique: XRAY Chest 1v Comparison: 04/04/2017 Findings: Heart size and mediastinal contours are stable. Persistent interstitial opacification/edema and small bilateral pleural effusions with bibasilar atelectasis/consolidation. There is no pneumothorax. No acute osseous abnormality seen. Impression: Cardiomegaly with persistent small bilateral pleural effusions and bibasilar atelectasis/consolidation. Findings are not significantly changed allowing for differences in patient positioning.
--- NOTE | 2017-04-06 20:39 | Cardiology Progress Note ---
Assessment/Plan Assessment/Plan congestive heart failure diastolic, acute paroxysmal atrial fibrillation, rapid ventricular rate converted to sinus rhythm on AMiodarone will continue to motnior anticoagulation monitor I/O antiocagulation with IV Heparin stable for trasnfer back to the telemetry ICU level of care, 50 min Subjective Subjective the patient was transferred to ICU she complaining for left sdied pain for last 4 years after shingles she also has dypsnea, but feels better Objective Last 24 Hour Vital Signs Date Time Temp Pulse Resp B/P (MAP) Pulse Ox O2 Delivery O2 Flow Rate FiO2 04/06/17 16:39 91 04/06/17 16:38 98.4 91 20 107/59 96 Nasal Cannula 3.0 04/06/17 14:00 85 20 120/58 96 Nasal Cannula 3.0 04/06/17 13:00 97.0 84 20 95/56 96 Nasal Cannula 3.0 04/06/17 12:45 81 04/06/17 08:20 132 04/06/17 08:00 50 04/06/17 08:00 97.0 140 18 112/92 93 Bi-pap 140 04/06/17 08:00 141 04/06/17 07:33 140 112/61 04/06/17 07:10 97 19 Bi-pap 40 04/06/17 07:10 136 18 99 50 04/06/17 06:14 137 04/06/17 05:10 133 18 99 50 04/06/17 04:40 135 137/73 04/06/17 04:00 50 04/06/17 04:00 132 04/06/17 04:00 97.0 134 20 147/71 100 Bi-pap 50 04/06/17 02:59 147 114/70 04/06/17 02:33 130 27 99 50 04/06/17 01:25 92 22 98 50 04/06/17 00:00 40 04/06/17 00:00 98.0 88 24 103/53 98 Bi-pap 50 04/06/17 00:00 93 04/05/17 23:20 96 14 94 50 04/05/17 20:59 96 26 98 40 General Appearance: moderate distress EENT: PERRL/EOMI Neck: JVD Rhythm: NSR, PACs Cardiovascular: normal rate Respiratory/Chest: crackles/rales Abdomen: distended Extremities: non-pitting Intake and Output 04/05/17 04/06/17 19:00 07:00 Intake Total 450 ml 293.2 ml Output Total 700 ml 1200 ml Balance -250 ml -906.8 ml Intake Oral 400 ml 200 ml IV Total 50 ml 93.2 ml Output Urine Total 700 ml 1200 ml # Voids 3 6 Laboratory Tests Test 04/06/17 03:50 White Blood Count 7.9 K/UL (4.8-10.8) Red Blood Count 4.04 M/UL (4.20-5.40) L Hemoglobin 12.8 G/DL (12.0-16.0) Hematocrit 37.4 % (37.0-47.0) Mean Corpuscular Volume 93 FL (80-99) Mean Corpuscular Hemoglobin 31.6 PG (27.0-31.0) H Mean Corpuscular Hemoglobin Concent 34.1 G/DL (32.0-36.0) Red Cell Distribution Width 11.9 % (11.6-14.8) Platelet Count 223 K/UL (150-450) Mean Platelet Volume 7.5 FL (6.5-10.1) Neutrophils (%) (Auto) 66.0 % (45.0-75.0) Lymphocytes (%) (Auto) 22.3 % (20.0-45.0) Monocytes (%) (Auto) 8.8 % (1.0-10.0) Eosinophils (%) (Auto) 1.6 % (0.0-3.0) Basophils (%) (Auto) 1.2 % (0.0-2.0) Sodium Level 139 MMOL/L (136-145) Potassium Level 3.0 MMOL/L (3.5-5.1) L Chloride Level 101 MMOL/L (98-107) Carbon Dioxide Level 28 MMOL/L (21-32) Anion Gap 10 mmol/L (5-15) Blood Urea Nitrogen 13 mg/dL (7-18) Creatinine 1.0 MG/DL (0.55-1.30) Estimat Glomerular Filtration Rate mL/min (>60) Glucose Level 82 MG/DL (74-106) Calcium Level 9.1 MG/DL (8.5-10.1) Total Bilirubin 1.4 MG/DL (0.2-1.0) H Direct Bilirubin 0.3 MG/DL (0.0-0.3) Aspartate Amino Transf (AST/SGOT) 67 U/L (15-37) H Alanine Aminotransferase (ALT/SGPT) 91 U/L (12-78) H Alkaline Phosphatase 109 U/L (46-116) Troponin I 0.000 ng/mL (0.000-0.056) Pro-B-Type Natriuretic Peptide 1810 pg/mL (0-125) H Total Protein 7.1 G/DL (6.4-8.2) Albumin 3.7 G/DL (3.4-5.0) Globulin 3.4 g/dL Albumin/Globulin Ratio 1.1 (1.0-2.7) Microbiology Date/Time Source Procedure Growth Status 04/04/17 15:15 Blood Blood Culture - Preliminary NO GROWTH AFTER 24 HOURS Resulted 04/04/17 15:05 Blood Blood Culture - Preliminary NO GROWTH AFTER 24 HOURS Resulted ASHU DELGADO Apr 06, 2017 20:39
[2017-04-06] MEDS ORDERED: Amiodarone 200mg tab ORAL SCH ×2 (21:00)
[2017-04-07] VITALS: BP 115/59
[2017-04-07 04:00] VITALS: BP 127/68
[2017-04-07 05:35] LABS: EOSINOPHILS % (AUTO) 1.3 % (0.0-3.0); HEMATOCRIT 37.6 % (37.0-47.0); LYMPHOCYTES % (AUTO) 21.1 % (20.0-45.0); MEAN CORPUSCULAR VOLUME 92 FL (80-99); MONOCYTES % (AUTO) 9.3 % (1.0-10.0); NEUTROPHILS % (AUTO) 67.3 % (45.0-75.0); PLATELET COUNT 224 K/UL (150-450); RED BLOOD COUNT 4.09 M/UL (4.20-5.40); RED CELL DISTRIBUTION WIDTH 11.9 % (11.6-14.8); WHITE BLOOD COUNT 8.2 K/UL (4.8-10.8)
[2017-04-07 06:03] LABS: ALANINE AMINOTRANSFERASE 65 U/L (12-78); ALBUMIN 3.5 G/DL (3.4-5.0); ALKALINE PHOSPHATASE 104 U/L (46-116); ANION GAP 11 mmol/L (5-15); ASPARTATE AMINO TRANSFERASE 36 U/L (15-37); BILIRUBIN,TOTAL 1.2 MG/DL (0.2-1.0); BLOOD UREA NITROGEN 17 mg/dL (7-18); CALCIUM 9.6 MG/DL (8.5-10.1); CARBON DIOXIDE 28 MMOL/L (21-32); CHLORIDE 102 MMOL/L (98-107); CREATININE 1.1 MG/DL (0.55-1.30); POTASSIUM 3.4 MMOL/L (3.5-5.1); SODIUM 141 MMOL/L (136-145)
[2017-04-07 06:04] LABS: BILIRUBIN,DIRECT 0.2 MG/DL (0.0-0.3)
[2017-04-07 08:00] VITALS: BP 118/90
--- NOTE | 2017-04-07 08:43 | Pulmonology Progress Note ---
Assessment/Plan Problems: (1) Acute respiratory failure (2) Atrial flutter (3) Palpitations (4) Pulmonary edema (5) CAD (coronary artery disease) Assessment/Plan titrate bipa, try to taper off diuretics, lasix drip check cxr bnp in am, improving titrate fio2 watch intake and output , kcl supplement symptomatic treatment of sinus tachycardia telemetry Subjective ROS Limited/Unobtainable: No Interval Events: off bipap Constitutional: Reports: no symptoms HEENT: Repors: no symptoms Respiratory: Reports: no symptoms Allergies: Coded Allergies: No Known Allergies (Unverified , 04/04/17) Objective Last 24 Hour Vital Signs Date Time Temp Pulse Resp B/P (MAP) Pulse Ox O2 Delivery O2 Flow Rate FiO2 04/07/17 04:00 97.8 88 20 127/68 99 Nasal Cannula 2.0 04/07/17 04:00 87 04/07/17 00:00 98.2 91 18 115/59 98 Nasal Cannula 2.0 04/07/17 00:00 89 04/06/17 20:00 98.0 90 20 120/61 96 Nasal Cannula 3.0 04/06/17 20:00 91 04/06/17 19:30 94 20 Nasal Cannula 2.0 28 04/06/17 19:30 96 Nasal Cannula 2.0 28 04/06/17 19:30 Nasal Cannula 2.0 28 04/06/17 16:39 91 04/06/17 16:38 98.4 91 20 107/59 96 Nasal Cannula 3.0 04/06/17 14:00 85 20 120/58 96 Nasal Cannula 3.0 04/06/17 13:00 97.0 84 20 95/56 96 Nasal Cannula 3.0 04/06/17 12:45 81 Intake and Output 04/06/17 04/07/17 19:00 07:00 Intake Total 350 ml Output Total 300 ml Balance 50 ml Intake Oral 350 ml Output Urine Total 300 ml # Voids 2 HEENT: normocephalic, atraumatic Respiratory/Chest: chest wall non-tender, lungs clear, normal breath sounds Breasts: no masses Cardiovascular: normal rate Abdomen: no organomegaly, no scars Genitourinary: normal external genitalia Extremities: no cyanosis Skin: no rash, no lesions Microbiology Date/Time Source Procedure Growth Status 04/04/17 15:15 Blood Blood Culture - Preliminary NO GROWTH AFTER 48 HOURS Resulted 04/04/17 15:05 Blood Blood Culture - Preliminary NO GROWTH AFTER 48 HOURS Resulted Laboratory Tests 04/07/17 03:50: White Blood Count 8.2, Red Blood Count 4.09L, Hemoglobin 13.0, Hematocrit 37.6, Mean Corpuscular Volume 92, Mean Corpuscular Hemoglobin 31.7H, Mean Corpuscular Hemoglobin Concent 34.5, Red Cell Distribution Width 11.9, Platelet Count 224, Mean Platelet Volume 7.3, Neutrophils (%) (Auto) 67.3, Lymphocytes (%) (Auto) 21.1, Monocytes (%) (Auto) 9.3, Eosinophils (%) (Auto) 1.3, Basophils (%) (Auto ) 1.0, Sodium Level 141, Potassium Level 3.4L, Chloride Level 102, Carbon Dioxide Level 28, Anion Gap 11, Blood Urea Nitrogen 17, Creatinine 1.1, Estimat Glomerular Filtration Rate , Glucose Level 83, Calcium Level 9.6, Total Bilirubin 1.2H, Direct Bilirubin 0.2, Aspartate Amino Transf (AST/SGOT) 36, Alanine Aminotransferase (ALT/SGPT) 65, Alkaline Phosphatase 104, Pro-B-Type Natriuretic Peptide 949H, Total Protein 7.0, Albumin 3.5, Globulin 3.5, Albumin/ Globulin Ratio 1.0, Digoxin Level 0.8L Current Medications Medications (Trade) Dose Ordered Sig/Tavo Route PRN Reason Start Time Stop Time Status Last Admin Dose Admin Amiodarone HCl (Cordarone) 400 mg EVERY 12 HOURS ORAL 04/07/17 09:00 05/07/17 08:59 Digoxin (Lanoxin) 0.25 mg DAILY IVP 04/07/17 09:00 05/05/17 08:59 Furosemide (Lasix) 40 mg EVERY 12 HOURS IV 04/06/17 21:00 05/06/17 10:14 04/06/17 21:45 ELI GO Apr 07, 2017 08:43
[2017-04-07] MEDS ORDERED: Digoxin 0.5mg/2ml Inj IVP SCH (09:00)
[2017-04-07] MEDS: Amiodarone 200mg tab ORAL SCH ×2 (09:32→21:38)
[2017-04-07] MEDS: Digoxin 0.5mg/2ml Inj IVP SCH (09:33)
[2017-04-07 12:00] VITALS: BP 107/59
--- NOTE | 2017-04-07 13:03 | Diagnostic Imaging Report ---
Indication: Dyspnea Technique: XRAY Chest 1v Comparison: 04/06/2017 Findings: Stable cardiomegaly. Persistent interstitial opacification/edema. Dense retrocardiac/left basilar atelectasis/consolidation and probable small bilateral pleural effusions. No pneumothorax. Impression: Cardiomegaly with interstitial opacification/edema and lateral pleural effusions with bibasilar atelectasis/consolidation. Degree of interstitial opacification appears increased on the right.
[2017-04-07 16:00] VITALS: BP 121/63
[2017-04-07 20:00] VITALS: BP 134/81
--- NOTE | 2017-04-07 23:30 | Cardiology Progress Note ---
Assessment/Plan Assessment/Plan stable on amiodarone and Lasix continue treatment for CHF Subjective Subjective the patient is doing much better,m less dyspnea, less pain Objective Last 24 Hour Vital Signs Date Time Temp Pulse Resp B/P (MAP) Pulse Ox O2 Delivery O2 Flow Rate FiO2 04/07/17 21:23 98 Nasal Cannula 2.0 28 04/07/17 21:23 Nasal Cannula 2.0 28 04/07/17 21:22 80 18 Nasal Cannula 2.0 28 04/07/17 20:00 76 04/07/17 20:00 98.1 84 20 134/81 100 Nasal Cannula 04/07/17 16:00 98.6 84 18 121/63 98 Nasal Cannula 84 04/07/17 16:00 78 04/07/17 12:00 98.1 78 18 107/59 94 Nasal Cannula 2.0 78 04/07/17 12:00 82 04/07/17 11:54 82 04/07/17 09:33 87 04/07/17 08:00 98.2 87 18 118/90 96 Nasal Cannula 2.0 87 04/07/17 08:00 99 04/07/17 07:52 99 04/07/17 04:00 97.8 88 20 127/68 99 Nasal Cannula 2.0 04/07/17 04:00 87 04/07/17 00:00 98.2 91 18 115/59 98 Nasal Cannula 2.0 04/07/17 00:00 89 General Appearance: mild distress EENT: PERRL/EOMI Neck: JVD Rhythm: NSR Cardiovascular: normal rate, systolic murmur Respiratory/Chest: crackles/rales Abdomen: decreased bowel sounds Extremities: no swelling Intake and Output 04/06/17 04/07/17 19:00 07:00 Intake Total 350 ml Output Total 300 ml Balance 50 ml Intake Oral 350 ml Output Urine Total 300 ml # Voids 2 Laboratory Tests Test 04/07/17 03:50 White Blood Count 8.2 K/UL (4.8-10.8) Red Blood Count 4.09 M/UL (4.20-5.40) L Hemoglobin 13.0 G/DL (12.0-16.0) Hematocrit 37.6 % (37.0-47.0) Mean Corpuscular Volume 92 FL (80-99) Mean Corpuscular Hemoglobin 31.7 PG (27.0-31.0) H Mean Corpuscular Hemoglobin Concent 34.5 G/DL (32.0-36.0) Red Cell Distribution Width 11.9 % (11.6-14.8) Platelet Count 224 K/UL (150-450) Mean Platelet Volume 7.3 FL (6.5-10.1) Neutrophils (%) (Auto) 67.3 % (45.0-75.0) Lymphocytes (%) (Auto) 21.1 % (20.0-45.0) Monocytes (%) (Auto) 9.3 % (1.0-10.0) Eosinophils (%) (Auto) 1.3 % (0.0-3.0) Basophils (%) (Auto) 1.0 % (0.0-2.0) Sodium Level 141 MMOL/L (136-145) Potassium Level 3.4 MMOL/L (3.5-5.1) L Chloride Level 102 MMOL/L (98-107) Carbon Dioxide Level 28 MMOL/L (21-32) Anion Gap 11 mmol/L (5-15) Blood Urea Nitrogen 17 mg/dL (7-18) Creatinine 1.1 MG/DL (0.55-1.30) Estimat Glomerular Filtration Rate mL/min (>60) Glucose Level 83 MG/DL (74-106) Calcium Level 9.6 MG/DL (8.5-10.1) Total Bilirubin 1.2 MG/DL (0.2-1.0) H Direct Bilirubin 0.2 MG/DL (0.0-0.3) Aspartate Amino Transf (AST/SGOT) 36 U/L (15-37) Alanine Aminotransferase (ALT/SGPT) 65 U/L (12-78) Alkaline Phosphatase 104 U/L (46-116) Pro-B-Type Natriuretic Peptide 949 pg/mL (0-125) H Total Protein 7.0 G/DL (6.4-8.2) Albumin 3.5 G/DL (3.4-5.0) Globulin 3.5 g/dL Albumin/Globulin Ratio 1.0 (1.0-2.7) Digoxin Level 0.8 NG/ML (0.9-2.0) ASHU ONTIVEROS Apr 07, 2017 23:30
[2017-04-08] VITALS: BP 113/66
[2017-04-08 04:00] VITALS: BP 104/57
[2017-04-08 06:55] LABS: BASOPHILS % (AUTO) 1.2 % (0.0-2.0); EOSINOPHILS % (AUTO) 1.1 % (0.0-3.0); HEMATOCRIT 37.8 % (37.0-47.0); HEMOGLOBIN 13.1 G/DL (12.0-16.0); LYMPHOCYTES % (AUTO) 17.8 % (20.0-45.0); MEAN CORPUSCULAR VOLUME 91 FL (80-99); MONOCYTES % (AUTO) 8.2 % (1.0-10.0); NEUTROPHILS % (AUTO) 71.7 % (45.0-75.0); PLATELET COUNT 214 K/UL (150-450); RED BLOOD COUNT 4.17 M/UL (4.20-5.40); RED CELL DISTRIBUTION WIDTH 11.6 % (11.6-14.8); WHITE BLOOD COUNT 8.3 K/UL (4.8-10.8)
[2017-04-08 07:25] LABS: ALANINE AMINOTRANSFERASE 46 U/L (12-78); ALBUMIN 3.3 G/DL (3.4-5.0); ALBUMIN/GLOBULIN RATIO 0.9 (1.0-2.7); ALKALINE PHOSPHATASE 104 U/L (46-116); ANION GAP 10 mmol/L (5-15); ASPARTATE AMINO TRANSFERASE 22 U/L (15-37); BLOOD UREA NITROGEN 18 mg/dL (7-18); CALCIUM 9.8 MG/DL (8.5-10.1); CARBON DIOXIDE 28 MMOL/L (21-32); CHLORIDE 102 MMOL/L (98-107); POTASSIUM 3.6 MMOL/L (3.5-5.1); SODIUM 140 MMOL/L (136-145)
[2017-04-08 08:00] VITALS: BP 112/68
[2017-04-08] MEDS: Amiodarone 200mg tab ORAL SCH ×2 (09:14→21:42)
[2017-04-08] MEDS: Digoxin 0.5mg/2ml Inj IVP SCH (09:15)
--- NOTE | 2017-04-08 09:38 | Diagnostic Imaging Report ---
Indication: Dyspnea Technique: XRAY Chest 1v Comparison: 04/07/2017 Findings: Stable recommended. Interval improvement of previously seen interstitial opacification/edema. There is persistent hazy opacity in the right mid/lower lung, slightly decreased. There is decreased in layering left pleural fluid. Persistent bibasilar airspace opacities with dense retrocardiac opacities. No pneumothorax. Impression: Interval improvement of interstitial edema/opacification and decrease in bilateral pleural effusions. Persistent small bilateral pleural effusions with bibasilar opacities and dense retrocardiac atelectasis/consolidation.
--- NOTE | 2017-04-08 09:45 | Pulmonology Progress Note ---
Assessment/Plan Problems: (1) Acute respiratory failure (2) Atrial flutter (3) Palpitations (4) Pulmonary edema (5) CAD (coronary artery disease) Assessment/Plan off bipa, try to taper off diuretics, lasix 40 IV bid, watch BUN check cxr bnp in am, improving titrate fio2 watch intake and output , kcl supplement symptomatic treatment of sinus tachycardia Pt/ot probably one more day of IV Lasix, dc planning for am Subjective ROS Limited/Unobtainable: No Constitutional: Reports: no symptoms HEENT: Repors: no symptoms Allergies: Coded Allergies: No Known Allergies (Unverified , 04/04/17) Objective Last 24 Hour Vital Signs Date Time Temp Pulse Resp B/P (MAP) Pulse Ox O2 Delivery O2 Flow Rate FiO2 04/08/17 09:15 83 04/08/17 08:00 98.2 83 20 112/68 93 Nasal Cannula 2.0 04/08/17 04:00 96.6 79 20 104/57 93 Nasal Cannula 04/08/17 03:57 78 04/08/17 00:00 79 04/08/17 00:00 97.3 77 20 113/66 91 Nasal Cannula 04/07/17 21:23 98 Nasal Cannula 2.0 28 04/07/17 21:23 Nasal Cannula 2.0 28 04/07/17 21:22 80 18 Nasal Cannula 2.0 28 04/07/17 20:00 76 04/07/17 20:00 98.1 84 20 134/81 100 Nasal Cannula 04/07/17 16:00 98.6 84 18 121/63 98 Nasal Cannula 84 04/07/17 16:00 78 04/07/17 12:00 98.1 78 18 107/59 94 Nasal Cannula 2.0 78 04/07/17 12:00 82 04/07/17 11:54 82 Intake and Output 04/07/17 04/08/17 19:00 07:00 Intake Total 580 ml 200 ml Output Total 900 ml Balance 580 ml -700 ml Intake Oral 580 ml 200 ml Output Urine Total 900 ml # Voids 3 HEENT: normocephalic Respiratory/Chest: lungs clear Breasts: no masses Cardiovascular: normal rate Abdomen: normal bowel sounds, no organomegaly Genitourinary: normal external genitalia Extremities: no clubbing Skin: no rash Laboratory Tests 04/08/17 06:15: White Blood Count 8.3, Red Blood Count 4.17L, Hemoglobin 13.1, Hematocrit 37.8, Mean Corpuscular Volume 91, Mean Corpuscular Hemoglobin 31.4H, Mean Corpuscular Hemoglobin Concent 34.6, Red Cell Distribution Width 11.6, Platelet Count 214, Mean Platelet Volume 7.0, Neutrophils (%) (Auto) 71.7, Lymphocytes (%) (Auto) 17.8L, Monocytes (%) (Auto) 8.2, Eosinophils (%) (Auto) 1.1, Basophils (%) (Auto ) 1.2, Sodium Level 140, Potassium Level 3.6, Chloride Level 102, Carbon Dioxide Level 28, Anion Gap 10, Blood Urea Nitrogen 18, Creatinine 1.0, Estimat Glomerular Filtration Rate , Glucose Level 108H, Calcium Level 9.8, Total Bilirubin 1.0, Aspartate Amino Transf (AST/SGOT) 22, Alanine Aminotransferase ( ALT/SGPT) 46, Alkaline Phosphatase 104, Pro-B-Type Natriuretic Peptide 393H, Total Protein 7.0, Albumin 3.3L, Globulin 3.7, Albumin/Globulin Ratio 0.9L Current Medications Medications (Trade) Dose Ordered Sig/Tavo Route PRN Reason Start Time Stop Time Status Last Admin Dose Admin Amiodarone HCl (Cordarone) 400 mg EVERY 12 HOURS ORAL 04/07/17 09:00 05/07/17 08:59 04/08/17 09:14 Digoxin (Lanoxin) 0.25 mg DAILY IVP 04/07/17 09:00 05/05/17 08:59 04/08/17 09:15 Furosemide (Lasix) 40 mg EVERY 12 HOURS IV 04/06/17 21:00 05/06/17 10:14 04/08/17 09:14 Temazepam (Restoril) 15 mg HSPRN PRN ORAL Insomnia 04/07/17 21:00 04/14/17 20:59 04/07/17 21:38 ELI GO Apr 08, 2017 09:45
[2017-04-08 12:00] VITALS: BP 117/72
[2017-04-08 16:00] VITALS: BP 121/64
--- NOTE | 2017-04-08 19:56 | Cardiology Progress Note ---
Assessment/Plan Assessment/Plan 1. Atrial flutter failed rate controlled with beta-blockers and Cardizem s/p cardioverison 2. Congestive heart failure. 3. Mitral stenosis likely sig 4. 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 has Mitral stenosis the gradient may be higher than recorded here she may need evaluation for candidacy for valvuloplasty eventually at [facility] for now diuresis now that bp has recovered post sedation for cardioversion yest is celeste laisx drip now i have her on amiod for now as her heart rate was difficult to control and required cardioversion amiod 400 mg bid for 1 weeks then 200 mg dialy until definative proceduire for valve tele no further afib flutter noted since 04/06 recurrence will need anticoagulation for stroke prevention with Coumadin (noac cannot be used in setting of valvular heart disease) all above discussed with pt and sone i have discussed need for frequent monitoring of blood test for inr eventually may need flutter ablation Subjective Cardiovascular: Denies: chest pain, lightheadedness, palpitations Respiratory: Denies: shortness of breath Gastrointestinal/Abdominal: Denies: abdominal pain Genitourinary: Denies: burning Objective Last 24 Hour Vital Signs Date Time Temp Pulse Resp B/P (MAP) Pulse Ox O2 Delivery O2 Flow Rate FiO2 04/08/17 16:00 98.1 71 22 121/64 99 Nasal Cannula 2.0 04/08/17 15:51 70 04/08/17 12:00 98.1 75 22 117/72 96 Nasal Cannula 2.0 04/08/17 11:45 72 04/08/17 09:41 76 04/08/17 09:15 83 04/08/17 08:00 98.2 83 20 112/68 93 Nasal Cannula 2.0 04/08/17 06:30 Nasal Cannula 2.0 28 04/08/17 06:30 97 Nasal Cannula 2.0 28 04/08/17 06:30 82 18 Nasal Cannula 2.0 28 04/08/17 04:00 96.6 79 20 104/57 93 Nasal Cannula 04/08/17 03:57 78 04/08/17 00:00 79 04/08/17 00:00 97.3 77 20 113/66 91 Nasal Cannula 04/07/17 21:23 98 Nasal Cannula 2.0 28 04/07/17 21:23 Nasal Cannula 2.0 28 04/07/17 21:22 80 18 Nasal Cannula 2.0 28 04/07/17 20:00 76 04/07/17 20:00 98.1 84 20 134/81 100 Nasal Cannula General Appearance: no apparent distress Neck: non-tender Cardiovascular: normal rate, regular rhythm Respiratory/Chest: decreased breath sounds - at bases Abdomen: normal bowel sounds, non tender, soft Extremities: no swelling Intake and Output 04/07/17 04/08/17 19:00 07:00 Intake Total 580 ml 200 ml Output Total 900 ml Balance 580 ml -700 ml Intake Oral 580 ml 200 ml Output Urine Total 900 ml # Voids 3 Laboratory Tests Test 04/08/17 06:15 White Blood Count 8.3 K/UL (4.8-10.8) Red Blood Count 4.17 M/UL (4.20-5.40) L Hemoglobin 13.1 G/DL (12.0-16.0) Hematocrit 37.8 % (37.0-47.0) Mean Corpuscular Volume 91 FL (80-99) Mean Corpuscular Hemoglobin 31.4 PG (27.0-31.0) H Mean Corpuscular Hemoglobin Concent 34.6 G/DL (32.0-36.0) Red Cell Distribution Width 11.6 % (11.6-14.8) Platelet Count 214 K/UL (150-450) Mean Platelet Volume 7.0 FL (6.5-10.1) Neutrophils (%) (Auto) 71.7 % (45.0-75.0) Lymphocytes (%) (Auto) 17.8 % (20.0-45.0) L Monocytes (%) (Auto) 8.2 % (1.0-10.0) Eosinophils (%) (Auto) 1.1 % (0.0-3.0) Basophils (%) (Auto) 1.2 % (0.0-2.0) Sodium Level 140 MMOL/L (136-145) Potassium Level 3.6 MMOL/L (3.5-5.1) Chloride Level 102 MMOL/L (98-107) Carbon Dioxide Level 28 MMOL/L (21-32) Anion Gap 10 mmol/L (5-15) Blood Urea Nitrogen 18 mg/dL (7-18) Creatinine 1.0 MG/DL (0.55-1.30) Estimat Glomerular Filtration Rate mL/min (>60) Glucose Level 108 MG/DL (74-106) H Calcium Level 9.8 MG/DL (8.5-10.1) Total Bilirubin 1.0 MG/DL (0.2-1.0) Aspartate Amino Transf (AST/SGOT) 22 U/L (15-37) Alanine Aminotransferase (ALT/SGPT) 46 U/L (12-78) Alkaline Phosphatase 104 U/L (46-116) Pro-B-Type Natriuretic Peptide 393 pg/mL (0-125) H Total Protein 7.0 G/DL (6.4-8.2) Albumin 3.3 G/DL (3.4-5.0) L Globulin 3.7 g/dL Albumin/Globulin Ratio 0.9 (1.0-2.7) L YI GIBSON Apr 08, 2017 19:56
[2017-04-08 20:00] VITALS: BP 112/55
[2017-04-08 21:38] LABS: INR 1.2 (0.9-1.1)
[2017-04-08] MEDS ORDERED: Warfarin Sodium 2.5mg ORAL ONE (22:30)
[2017-04-09] VITALS: BP 115/59
[2017-04-09 04:00] VITALS: BP 123/72
[2017-04-09 05:13] LABS: INR 1.1 (0.9-1.1)
[2017-04-09 08:00] VITALS: BP 134/52
[2017-04-09] MEDS: Amiodarone 200mg tab ORAL SCH (09:36)
[2017-04-09] MEDS: Digoxin 0.5mg/2ml Inj IVP SCH (09:36)
--- NOTE | 2017-04-09 11:50 | Pulmonology Progress Note ---
Assessment/Plan Problems: (1) Acute respiratory failure (2) Atrial flutter (3) Palpitations (4) Pulmonary edema (5) CAD (coronary artery disease) Assessment/Plan improving check electrolytes check cxr bnp in am, improving titrate fio2 watch intake and output , Pt/ot dc planning for today Subjective ROS Limited/Unobtainable: No Constitutional: Reports: no symptoms HEENT: Repors: no symptoms Respiratory: Reports: no symptoms Allergies: Coded Allergies: No Known Allergies (Unverified , 04/04/17) Objective Last 24 Hour Vital Signs Date Time Temp Pulse Resp B/P (MAP) Pulse Ox O2 Delivery O2 Flow Rate FiO2 04/09/17 09:36 73 04/09/17 08:00 97.5 73 21 134/52 94 Nasal Cannula 3.0 04/09/17 07:55 97 Nasal Cannula 3.0 32 04/09/17 07:55 Nasal Cannula 3.0 32 04/09/17 07:55 84 20 Nasal Cannula 3.0 32 04/09/17 07:37 73 04/09/17 04:00 80 04/09/17 04:00 98.6 78 20 123/72 94 Nasal Cannula 3.0 04/09/17 00:00 98.0 78 24 115/59 98 Nasal Cannula 3.0 04/08/17 23:26 86 04/08/17 21:12 76 20 Nasal Cannula 2.0 28 04/08/17 21:12 98 Nasal Cannula 2.0 28 04/08/17 21:12 Nasal Cannula 2.0 28 04/08/17 20:45 76 04/08/17 20:00 98.2 78 20 112/55 95 Nasal Cannula 3.0 04/08/17 16:00 98.1 71 22 121/64 99 Nasal Cannula 2.0 04/08/17 15:51 70 04/08/17 12:00 98.1 75 22 117/72 96 Nasal Cannula 2.0 Intake and Output 04/08/17 04/09/17 19:00 07:00 Intake Total 300 ml Output Total 700 ml Balance -400 ml Intake Oral 300 ml Output Urine Total 700 ml # Voids 2 General Appearance: WD/WN HEENT: normocephalic, anicteric, PERRL Respiratory/Chest: chest wall non-tender Breasts: no masses Cardiovascular: normal rate Abdomen: soft, non tender, no mass Extremities: no clubbing Laboratory Tests 04/08/17 20:55: Prothrombin Time 12.1H, Prothromb Time International Ratio 1.2H 04/09/17 03:50: Prothrombin Time 11.8H, Prothromb Time International Ratio 1.1 Current Medications Medications (Trade) Dose Ordered Sig/Tavo Route PRN Reason Start Time Stop Time Status Last Admin Dose Admin Amiodarone HCl (Cordarone) 400 mg EVERY 12 HOURS ORAL 04/07/17 09:00 05/07/17 08:59 04/09/17 09:36 Digoxin (Lanoxin) 0.25 mg DAILY IVP 04/07/17 09:00 05/05/17 08:59 04/09/17 09:36 Furosemide (Lasix) 40 mg DAILY IV 04/09/17 09:00 05/06/17 10:14 04/09/17 09:36 Temazepam (Restoril) 15 mg HSPRN PRN ORAL Insomnia 04/07/17 21:00 04/14/17 20:59 04/08/17 21:42 Warfarin Sodium (Coumadin per pharmacy) 1 ea DAILY PRN MISC Per rx protocol 04/08/17 20:00 05/08/17 19:59 Warfarin Sodium (Coumadin) 5 mg COUMADIN ORAL 04/09/17 17:00 04/09/17 17:01 ELI GO Apr 09, 2017 11:50
[2017-04-09] MEDS ORDERED: PACERONE200 MG ORAL (11:52)
[2017-04-09 12:00] VITALS: BP 100/60
--- NOTE | 2017-04-09 13:35 | Cardiology Progress Note ---
Assessment/Plan Assessment/Plan 1. Atrial flutter failed rate controlled with beta-blockers and Cardizem s/p cardioverison 2. Congestive heart failure. 3. Mitral stenosis likely sig 4. 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 has Mitral stenosis the gradient may be higher than recorded here she may need evaluation for candidacy for valvuloplasty eventually at [facility] for now diuresis now that bp has recovered post sedation for cardioversion yest is celeste laisx drip now i have her on amiod for now as her heart rate was difficult to control and required cardioversion amiod 400 mg bid for 1 weeks then 200 mg dialy until definative proceduire for valve tele no further afib flutter noted since 04/06 recurrence will need anticoagulation for stroke prevention with Coumadin (noac cannot be used in setting of valvular heart disease) all above discussed with pt and sone i have discussed need for frequent monitoring of blood test for inr eventually may need flutter ablation i worote out persription amiod 200 mgg tid for 10 dyas then qd, lasix 40 dialy , couamdin 2 mg 2 daily for 4 days then protime directed Subjective Cardiovascular: Denies: chest pain, irregular heart rate, lightheadedness, palpitations Respiratory: Denies: shortness of breath Gastrointestinal/Abdominal: Denies: abdominal pain Genitourinary: Denies: burning Objective Last 24 Hour Vital Signs Date Time Temp Pulse Resp B/P (MAP) Pulse Ox O2 Delivery O2 Flow Rate FiO2 04/09/17 12:00 97.4 76 21 100/60 99 Room Air 04/09/17 12:00 76 04/09/17 09:36 73 04/09/17 08:00 97.5 73 21 134/52 94 Nasal Cannula 3.0 04/09/17 07:55 97 Nasal Cannula 3.0 32 04/09/17 07:55 Nasal Cannula 3.0 32 04/09/17 07:55 84 20 Nasal Cannula 3.0 32 04/09/17 07:37 73 04/09/17 04:00 80 04/09/17 04:00 98.6 78 20 123/72 94 Nasal Cannula 3.0 04/09/17 00:00 98.0 78 24 115/59 98 Nasal Cannula 3.0 04/08/17 23:26 86 04/08/17 21:12 76 20 Nasal Cannula 2.0 28 04/08/17 21:12 98 Nasal Cannula 2.0 28 04/08/17 21:12 Nasal Cannula 2.0 28 04/08/17 20:45 76 04/08/17 20:00 98.2 78 20 112/55 95 Nasal Cannula 3.0 04/08/17 16:00 98.1 71 22 121/64 99 Nasal Cannula 2.0 04/08/17 15:51 70 General Appearance: alert Neck: supple Cardiovascular: normal rate, regular rhythm Respiratory/Chest: lungs clear, normal breath sounds Abdomen: normal bowel sounds, non tender, soft Extremities: no swelling Intake and Output 04/08/17 04/09/17 19:00 07:00 Intake Total 300 ml Output Total 700 ml Balance -400 ml Intake Oral 300 ml Output Urine Total 700 ml # Voids 2 Laboratory Tests Test 04/08/17 20:55 04/09/17 03:50 Prothrombin Time 12.1 SEC (9.30-11.50) H 11.8 SEC (9.30-11.50) H Prothromb Time International Ratio 1.2 (0.9-1.1) H 1.1 (0.9-1.1) YI GIBSON Apr 09, 2017 13:35
[2017-04-09 16:00] VITALS: BP 113/61
[2017-04-09] MEDS ORDERED: Warfarin Sodium 5mg ORAL SCH (17:00)
--- NOTE | 2017-04-11 14:29 | Discharge Summary ---
Discharge Summary Hospital Course Date of Admission Apr 04, 2017 at 14:12 Date of Discharge Apr 09, 2017 at 17:30 Admitting Diagnosis A MAIKOL HPI Sharri Zaragoza is a 77 year old female who was admitted on Apr 04, 2017 at 14: 12 for Atrial Fibrilation Hospital Course [id number] Discharge Discharge Disposition Patient was discharged to Home with Home Health(06) Discharge Diagnoses: Sarai Marc NP Apr 11, 2017 14:29
--- NOTE | 2017-04-11 22:45 | Discharge Summary 2 SIG ---
DATE OF ADMISSION: 04/04/2017 DATE OF DISCHARGE: 04/09/2017 [employer]: Param Cardenas M.D. BRIEF HOSPITAL COURSE: The patient is a 77-year-old female, who presented to ED complaining of palpitations for 5 days. Denies any prior history. She was seen by PMD and was referred here for further evaluation. On evaluation at the ED, the patient had elevated heart rate. EKG showed atrial flutter. She was given Lopressor x2 and adenosine IV push. Blood work showed no leukocytosis. Hemoglobin and hematocrit were stable. Troponin was negative. She had a chest x-ray done that showed interstitial edema/congestive heart failure with bilateral pleural effusions. She was admitted to [facility] for evaluation of atrial flutter. She underwent cardiac evaluation. On review at ED, the patient was cardioverted with 50 joules and converted to sinus rhythm. She had successful cardioversion. She was given IV diuretics. Echocardiogram done was technically difficult. Systolic function showed EF of 60% to 65%. She has mitral stenosis and gradient may be higher than recorded. She was given Lasix drip. She was given amiodarone 200 mg b.i.d. She was placed on BiPAP. She was given anticoagulation with IV heparin. She complained of left-sided chest pain and was transferred to ICU. She was given anticoagulation with IV heparin and was transferred back to telemetry. Continued on Lasix drip. She was eventually taken off BiPAP. She eventually needs evaluation for possible valvuloplasty. She received PT and OT. There is no more recurrence of atrial flutter. She was started on Coumadin. NAOC cannot be used in the setting of valvular heart disease. She was eventually cleared for discharge home with home health. FINAL DIAGNOSES: 1. Atrial flutter, failed rate control with beta-trina and Cardizem, status post cardioversion. 2. Congestive heart failure. 3. Mitral stenosis, likely significant. 4. Pulmonary hypertension. DISPOSITION: The patient was discharged home with home health. DISCHARGE MEDICATIONS: Refer to medication list. Gabby Chavez M.D. I have been assigned to dictate discharge summary on this account and I was not involved in the patient's management. Sarai Marc N.P. DR: [place] JOB#: [id number] CC:
--- NOTE | 2017-04-21 20:33 | Diagnostic Imaging Report ---
APPROVED REPORT CPT Code: 97338 Present Symptoms Lower Extremity Pain: Comments: R/O DVT. BILATERAL LOWER EXTREMITY VENOUS DUPLEX: Imaging reveals a patent deep venous system bilaterally. There is no evidence of thrombus within the femoral, popliteal or tibial segments. The greater saphenous veins are also within normal limits. Doppler indicates normal spontaneous flow within these segments.
== END 2017-04-09 17:30 | disposition home health service (06) | DRG 308 ==
LOC: EDBD 12:58 → EMR 13:40 → 2W 14:12 → EDBEDREQSVC 17:57 → EDBEDREQ 17:57 → ICU 04-06 13:08 → 2W 04-06 17:01 → UNDODISIN 04-09 17:41
PROC: 5A09457 Assistance with Respiratory Ventilation, 24-96 Consecutive Hours, Continuous Positive Airway Pressure (ICD-10-PCS; principal; 2017-04-04)
PROC: 5A2204Z Restoration of Cardiac Rhythm, Single (ICD-10-PCS; principal; 2017-04-04)
DX: I48.92 Unspecified atrial flutter (principal); J96.00 Acute respiratory failure, unspecified whether with hypoxia or hypercapnia; I50.31 Acute diastolic (congestive) heart failure; I34.0 Nonrheumatic mitral (valve) insufficiency; I27.20 Pulmonary hypertension, unspecified; I34.2 Nonrheumatic mitral (valve) stenosis
CPT/HCPCS: 36415; 71045; 80053; 80061; 80162; 81003; 82248; 82550; 82553; 83605; 83880; 84443; 84484; 85025; 85610; 85730; 86140; 86850; 86900; 86901; 87040; 93005; 93306; 93970; 94640; 94660; 94664; 94760; 99285; J2250; J7620; J8499